=== PATIENT | female | born 1955 | race Caucasian/White ===

== ENCOUNTER 2020-06-30 17:00 | Emergency (ER) | payer OTHER ==
[2020-06-30 17:51] LABS: Hematocrit 26.1 % (36.0-45.0); Lymphocytes % 19.2 % (15.3-44.8); MPV 8.5 fL (7.6-11.3); RBC Red Blood Cell Count 3.05 M/uL (3.86-4.86)
[2020-06-30 17:55] LABS: Protime INR 1.16
[2020-06-30 18:00] LABS: Potassium 3.7 mmol/L (3.5-5.1)
--- NOTE | 2020-06-30 18:28 | RAD REPORT ---
EXAM DESCRIPTION: RAD - Knee Left 3 View - 06/30/2020 5:55 pm CLINICAL HISTORY: PAIN COMPARISON: No comparisons FINDINGS: Small suprapatellar joint effusion is seen. Soft tissue swelling is seen along the anterio r aspect of the knee. No acute fracture is evident.
--- NOTE | 2020-06-30 18:30 | RAD REPORT ---
EXAM DESCRIPTION: CT - CTHCSPWOC - 06/30/2020 6:03 pm CLINICAL HISTORY: Trauma, head and neck injury. fall COMPARISON: No comparisons TECHNIQUE: Axial 5 mm thick images of the head were obtained. Axial 2 mm thick images of the cervical spine were obtained with sagittal and coronal reconstruction images generated and reviewed. All CT scans are performed using dose optimization technique as appropriate and may include automated exposure control or mA/KV adjustment according to patient size. FINDINGS: CT HEAD WITHOUT CONTRAST: No acute hemorrhage, hydrocephalus or extra-axial collection is identified.No areas of brain edema or midline shift. The paranasal sinuses and mastoids are clear.The calvarium is intact. CT CERVICAL SPINE WITHOUT CONTRAST: No fracture or subluxation.Mild lower cervical degenerative changes.No prevertebral soft tissues swel ling is identified. IMPRESSION: No acute intracranial or cervical spine findings.
--- NOTE | 2020-06-30 18:32 | RAD REPORT ---
EXAM DESCRIPTION: CT - CTFB CLINICAL HISTORY: FACIAL PAIN Trauma, fall, left-sided facial pain swelling. COMPARISON: No comparisons TECHNIQUE: Axial 2 mm thick images of the face were obtained with sagittal and coronal reconstructio n images. All CT scans are performed using dose optimization technique as appropriate and may include automated exposure control or mA/KV adjustment according to patient size. FINDINGS: No acute facial bone fracture is seen.The mandible is intact. The globes and orbital contents are grossly unremarkable.The paranasal sinuses and mastoids are clear . IMPRESSION: Negative for facial bone fracture.
--- NOTE | 2020-06-30 18:35 | RAD REPORT ---
EXAM DESCRIPTION: CT - Thorax Wo Con CLINICAL HISTORY: Chest pain blunt chest trauma, dialysis patient, anterior hematoma COMPARISON: No comparisons FINDINGS: Soft tissue swelling is seen superior left aspect of the chest. Mild COPD is present throu ghout the lungs. Mild linear atelectasis is present in the left lung base. No pleural thickening or p leural effusion. No pneumothorax. No axillary, mediastinal or hilar adenopathy. No displaced fracture is evident. Degenerative changes are present involving the thoracic spine. No g ross upper abdominal finding. All CT scans are performed using dose optimization technique as appropriate and may include automated exposure control or mA/KV adjustment according to patient size. IMPRESSION: No acute intrathoracic abnormality is detected.
--- NOTE | 2020-06-30 18:37 | ER ---
Nurse's Notes [facility] Name: Jordana Henry Age: 65 yrs Sex: Female : 1955 Arrival Date: 06/30/2020 Time: 17:03 Bed 19 Private MD: Diagnosis: Hematoma left chest wall;Contusion of left knee;Facial contusion Presentation: 06/30 17:10 Chief complaint: EMS states: At the doctor's office, tripped over a chair in the lobby jl7 and fell, denies LOC, did not hit head, reports left side of face pain, left arm pain, left anterior chest wall pain. Care prior to arrival: None. Mechanism of Injury: Fall from standing position. Trauma event details: Injury occurred in the [facility], Injury occurred: in a public building. Injury occurred: June 30, 2020. 17:10 Acuity: AUGUST 3 jl7 17:10 Method Of Arrival: EMS: [facility] jl7 17:12 Coronavirus screen: Client denies travel out of the [place] in the last 14 days. At this jl7 time, the client does not indicate any symptoms associated with coronavirus-19. Ebola Screen: No symptoms or risks identified at this time. Initial Sepsis Screen: Does the patient meet any 2 criteria? No. Patient's initial sepsis screen is negative. Does the patient have a suspected source of infection? No. Patient's initial sepsis screen is negative. Risk Assessment: Do you want to hurt yourself or someone else? Patient reports no desire to harm self or others. Onset of symptoms was June 30, 2020. Triage Assessment: 17:15 General: Appears in no apparent distress. uncomfortable, Behavior is calm, cooperative, jl7 appropriate for age. Pain: Complains of pain in left jaw, anterior aspect of left upper chest and left arm Pain currently is 7 out of 10 on a pain scale. Neuro: Level of Consciousness is awake, alert, obeys commands, Oriented to person, place, time, situation. Cardiovascular: Patient's skin is warm and dry. Respiratory: Airway is patent Respiratory effort is even, unlabored, Respiratory pattern is regular, symmetrical. Derm: Skin is pink, warm \T\ dry. Bruising that is dark purple, on left jaw. Musculoskeletal: Swelling present in anterior aspect of left upper chest. Trauma Activation: Not Applicable Physician: ED Physician; Name: ; Notified At: ; Arrived At: Physician: General Surgeon; Name: ; Notified At: ; Arrived At: Physician: Radiology; Name: ; Notified At: ; Arrived At: Physician: Respiratory; Name: ; Notified At: ; Arrived At: Physician: Lab; Name: ; Notified At: ; Arrived At: Historical: - Allergies: 17:15 PENICILLINS; jl7 - PMHx: 17:15 Diabetes - IDDM; Dialysis; jl7 - PSHx: 17:15 Heart stents; Hysterectomy; Tonsillectomy; jl7 - Immunization history:: Adult Immunizations unknown. - Social history:: Smoking status: Patient denies any tobacco usage or history of. - Family history:: not pertinent. - Hospitalizations: : No recent hospitalization is reported. Screenin:42 Abuse screen: Denies threats or abuse. Denies injuries from another. Nutritional jl7 screening: No deficits noted. Tuberculosis screening: No symptoms or risk factors identified. Fall Risk Fall in past 12 months (25 points). IV access (20 points). Total Cintron Fall Scale indicates High Risk Score (45 or more points). Fall prevention measures have been instituted. Side Rails Up X 2 Placed Close to Nursing Station 1:1 Attendant Assigned Frequent Obs/Assessments Occuring Family Present and informed to notify staff if the need to leave the bedside As available patient and family educated on Fall Prevention Program and Strategies. Assessment: 17:15 General: See triage assessment. jl7 18:15 Reassessment: Patient appears in no apparent distress at this time. No changes from jl7 previously documented assessment. Patient and/or family updated on plan of care and expected duration. Pain level reassessed. Patient is alert, oriented x 3, equal unlabored respirations, skin warm/dry/pink. Vital Signs: 17:12 BP 138 / 49; Pulse 79; Resp 15; Temp 98.2; Pulse Ox 89% 0 lpm ; jl7 18:15 BP 135 / 51; Pulse 80; Resp 15; Pulse Ox 100% on 2.5 lpm NC; jl7 ED Course: 17:03 Patient arrived in ED. tw2 17:04 Chapito Kovacs MD is Attending Physician. rn 17:09 Archie Puentes RN is Primary Nurse. jl7 17:12 Triage completed. jl7 17:15 Arm band placed on right wrist. jl7 17:16 Missed attempt(s): 20 gauge in right antecubital area. Bleeding controlled, band aid tw2 applied, catheter tip intact. 17:41 Initial lab(s) drawn, by me, sent to lab. Inserted saline lock: 20 gauge in right jl7 antecubital area, using aseptic technique. Blood collected. 17:42 Patient has correct armband on for positive identification. Bed in low position. Call jl7 light in reach. Side rails up X 1. Pulse ox on. NIBP on. 17:56 XRAY Knee LEFT 3 view In Process Unspecified. EDMS 18:02 CT Head C Spine In Process Unspecified. EDMS 18:02 CT Facial Bones W/O Con In Process Unspecified. EDMS 18:03 CT Chest Wo Con In Process Unspecified. EDMS 18:50 No provider procedures requiring assistance completed. IV discontinued, intact, jl7 bleeding controlled, No redness/swelling at site. Pressure dressing applied. Administered Medications: No medications were administered Outcome: 18:36 Discharge ordered by . rn 18:50 Discharged to home ambulatory. jl7 18:50 Condition: stable 18:50 Discharge instructions given to patient, family, Instructed on discharge instructions, follow up and referral plans. Demonstrated understanding of instructions, follow-up care. 18:51 Patient left the ED. jl7 Signatures: Dispatcher [employer] Chapito Glasgow MD MD rn Wise, Tara, RN RN tw2 Archie Puentes RN RN jl7
--- NOTE | 2020-06-30 18:37 | EDPHYS ---
Physician Documentation [facility] Name: Jordana Henry Age: 65 yrs Sex: Female : 1955 Arrival Date: 06/30/2020 Time: 17:03 Bed 19 Private MD: ED Physician Chapito Kovacs HPI: 06/30 17:07 This 65 yrs old Female presents to ER via Unassigned with complaints of Fall rn Injury. 17:07 Details of fall: The patient fell from an upright position, while walking. Onset: The rn symptoms/episode began/occurred just prior to arrival. Associated injuries: The patient sustained injury to the head, injury to the chest. Severity of symptoms: At their worst the symptoms were mild, in the emergency department the symptoms are unchanged. The patient has not experienced similar symptoms in the past. Reports at doctor office, tripped over chair, fell on face/chest, no LOC, takes heparin for dialysis, remembers all events. No sob. + mild swelling to left anterior chest wall, and reports left facial pain. + mild left knee pain but able to stand on it for EMS.. Historical: - Allergies: 17:15 PENICILLINS; jl7 - PMHx: 17:15 Diabetes - IDDM; Dialysis; jl7 - PSHx: 17:15 Heart stents; Hysterectomy; Tonsillectomy; jl7 - Immunization history:: Adult Immunizations unknown. - Social history:: Smoking status: Patient denies any tobacco usage or history of. - Family history:: not pertinent. - Hospitalizations: : No recent hospitalization is reported. ROS: 17:08 Constitutional: Negative for fever, chills, and weight loss, Eyes: Negative for injury, rn pain, redness, and discharge, ENT: + right cheek/jaw pain Neck: Negative for injury, pain, and swelling, Cardiovascular: Negative for palpitations Respiratory: Negative for shortness of breath, cough, wheezing, and pleuritic chest pain, Abdomen/GI: Negative for abdominal pain, nausea, vomiting, diarrhea, and constipation, Back: Negative for injury and pain, MS/Extremity: + left knee pain Skin: Negative for laceration Neuro: Negative for headache, weakness, numbness, tingling, and seizure. Exam: 17:08 Constitutional: Obese patient, no acute distress Head/Face: Normocephalic, mild rn tenderness left cheek with ecchymosis, no oral injury ENT: No oral trauma Neck: No midline tenderness Chest/axilla: + anterior left chest wall hematoma without crepitus Cardiovascular: Regular rate and rhythm. No pulse deficits. Respiratory: Speaking full sentences. No increased work of breathing, no retractions or nasal flaring. Abdomen/GI: Soft, non-tender MS/ Extremity: + mild painful ROM left knee, no deformity, able to actively and passively range left knee, no open wounds Neuro: Awake and alert, GCS 15, oriented to person, place, time, and situation. Cranial nerves II-XII grossly intact. Motor strength 5/5 in all extremities. Sensory grossly intact. Vital Signs: 17:12 BP 138 / 49; Pulse 79; Resp 15; Temp 98.2; Pulse Ox 89% 0 lpm ; jl7 18:15 BP 135 / 51; Pulse 80; Resp 15; Pulse Ox 100% on 2.5 lpm NC; jl7 MDM: 17:04 Patient medically screened. rn 18:33 Differential diagnosis: closed head injury, contusion, fracture, sprain, strain, rib rn fracture, hematoma. Data reviewed: vital signs, nurses notes, radiologic studies, CT scan, plain films, and as a result, I will discharge patient. 18:36 Counseling: I had a detailed discussion with the patient and/or guardian regarding: the rn historical points, exam findings, and any diagnostic results supporting the discharge/admit diagnosis, lab results, radiology results, the need for outpatient follow up, to return to the emergency department if symptoms worsen or persist or if there are any questions or concerns that arise at home. Special discussion: I discussed with the patient/guardian in detail that at this point there is no indication for admission to the hospital. It is understood, however, that if the symptoms persist or worsen the patient needs to return immediately for re-evaluation. 06/30 17: Order name: CBC with Diff; Complete Time: 18:36 rn 06/30 17: Order name: Basic Metabolic Panel; Complete Time: 18:36 rn 06/30 17: Order name: CT Head C Spine; Complete Time: 18:36 rn 06/30 17: Order name: CT Facial Bones W/O Con; Complete Time: 18:36 rn 06/30 17: Order name: Protime (+inr); Complete Time: 18:36 rn 06/30 17:06 Order name: Ptt, Activated; Complete Time: 18:36 rn 06/30 17:06 Order name: CT Chest Wo Con rn 06/30 17:06 Order name: XRAY Knee LEFT 3 view; Complete Time: 18:36 rn 06/30 17:06 Order name: IV Start; Complete Time: 17:34 rn 06/30 17:06 Order name: EKG; Complete Time: 17:07 rn 06/30 17: Order name: EKG - Nurse/Tech; Complete Time: 17:54 rn Administered Medications: No medications were administered Disposition: 06/30/20 18:36 Discharged to Home. Impression: Hematoma left chest wall, Contusion of left knee, Facial contusion. - Condition is Stable. - Discharge Instructions: Contusion, Hematoma, Knee Pain. - Medication Reconciliation Form, Thank You Letter, Antibiotic Education, Prescription Opioid Use form. - Follow up: Private Physician; When: As needed; Reason: Recheck today's complaints, Re-evaluation by your physician. - Problem is new. - Symptoms have improved. Signatures: Dispatcher [employer] EDMS Chapito Kovacs MD MD rn Leal, Jahala, RN RN jl7 Corrections: (The following items were deleted from the chart) 17:10 17:08 Constitutional: Negative for fever, chills, and weight loss, Eyes: Negative for rn injury, pain, redness, and discharge, ENT: + right cheek/jaw pain Neck: Negative for injury, pain, and swelling, Cardiovascular: Negative for chest pain, palpitations, and edema, Respiratory: Negative for shortness of breath, cough, wheezing, and pleuritic chest pain, Abdomen/GI: Negative for abdominal pain, nausea, vomiting, diarrhea, and constipation, Back: Negative for injury and pain, MS/Extremity: + left knee pain Skin: Negative for laceration Neuro: Negative for headache, weakness, numbness, tingling, and seizure, rn 18:51 18:36 06/30/2020 18:36 Discharged to Home. Impression: Hematoma left chest wall; jl7 Contusion of left knee; Facial contusion. Condition is Stable. Discharge Instructions: Contusion, Hematoma, Knee Pain. Forms are Medication Reconciliation Form, Thank You Letter, Antibiotic Education, Prescription Opioid Use. Follow up: Private Physician; When: As needed; Reason: Recheck today's complaints, Re-evaluation by your physician. Problem is new. Symptoms have improved. rn
[2020-06-30 18:59] VITALS: TEMP 98.2
[2020-06-30 19:00] VITALS: BP 135/51; O2SAT 100
--- OUTSIDE RECORDS SUMMARY | 2020-07-01 22:13 | XMS REPORT | Continuity of Care Document ---
:1955 Author Organization [facility] t Address [address] [place] [address] Care Team Providers Name Role Phone Alice HILLS, L Attending Clinician Unavailable Fifi HERRMANN, G Attending Clinician Rizwana JOSEPH Attending Clinician Eri JOSEPH, A Attending Clinician Pob, Lab Main Attending Clinician Unavailable Rizwana JOSEPH Admitting Clinician Problems Condition Condition Condition Status Onset Resolution Last Treating Co mments Source Name Details Category Date Date Treatment Clinician Date Hyperlipid Hyperlipid Problem Active [facility], [facility], [facility] - unspecifie unspecifie Me moria d d l hyperlipid hyperlipid Ou tpati emia type emia type ent Clinics Asthma Asthma Problem [facility] Type 2 Type [address] [facility] diabetes diabetes [facility] - mellitus mellitus Memori a with with l 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 t y y Clinics Chronic Chronic Problem Active [facility] kidney kidney [facility] - disease, disease, Memori a unspecifie unspecifie l d CKD d CKD Outpati stage stage ent Clinics Uncontroll Uncontroll Problem Active [facility] ed type 2 ed type 2 [facility] - diabetes diabetes Memori a mellitus mellitus l with with Outpati hyperglyce hyperglyce en t lexie lexie Clinics Swelling Swelling Problem [facility] Essential Essential Problem Active [facility] hypertensi hypertensi Daisy kes - on on Memoria l [facility] Status Status Problem Active [facility] post post [facility] - non-ST non-ST Memoria elevation elevation l myocardial myocardial Ou tpati infarction infarction en t (NSTEMI) (NSTEMI) Clinic s Cellulitis Cellulitis Problem Active [facility] of right of right [facility] - leg leg Memoria l [facility] ent Clinics Kidney Kidney Problem Active [facility] disease disease [facility] ent [facility] Sinus Sinus Problem Active [facility] problem problem [facility] Diabetes Diabetes Problem Active [facility] Seasonal Seasonal Problem Active [facility] t allergies allergies Luke s - Memoria l [facility] Heart Heart Problem Active [facility] disease disease [facility] Depression Depression Problem Active [facility] CHF CHF Problem Active [facility] (congestiv (congestiv Daisy kes - e heart e heart Memoria failure) failure) l [facility] Circulatio Circulatio Problem Active [facility] n problem n problem [facility] - Memoria l [facility] Hypothyroi Hypothyroi Problem Active [facility] dism, dism, [facility] - unspecifie unspecifie Me moria d type d type l [facility] Gastroesop Gastroesop Problem Active [facility] hageal hageal [facility] - reflux reflux Memoria disease, disease, l esophagiti esophagiti Ou tpati s presence s presence en t not not Clinics specified specified Right leg Right leg Problem Active [facility] pain pain [facility] Clinics Skin Skin Problem Active [facility] abrasion abrasion [facility] Clinics History of History of Problem Active [facility] recent recent [facility] - fall fall Memoria l [facility] Clinics Shortness Shortness Problem Active [facility] of breath of breath Luke s - Memoria l [facility] ent Clinics Weight Weight Problem Active [facility] gain gain [facility]ics Chest Chest Problem Active [facility] tightness tightness Luke s - Memoria l [facility] Pain in Pain in Problem Active [facility] left foot left foot Luke s - Memoria l [facility] ent Clinics Non Non Problem Active [facility] healing healing [facility] - left heel left heel Art shlomo wound wound l Outpati ent Clinics Pain in Pain in Problem Active [facility] right foot right foot Daisy kes - Memoria l [facility] ent Clinics On On Problem Active [facility] supplement supplement Daisy kes - al oxygen al oxygen Art shlomo by nasal by nasal l cannula cannula [facility] ent Clinics Hypoxia Hypoxia Problem Active [facility] ent Clinics Rash and Rash and Problem Active [facility] t nonspecifi nonspecifi Daisy kes - c skin c skin Memoria eruption eruption l [facility] ent Clinics Allergies, Adverse Reactions, Alerts Allergy Allergy Status Severity Reaction(s) Onset Inactive Treating Comm ents Source Name Type Date Date Clinician penicill Adverse Active rash [facility] in Reaction [facility] ent Clinics Medications Ordered Filled Start Stop Current Ordering Indication Dosage Frequency Signature Comments Components Source Medication Medication Date Date Medication? Clinician (SIG) Name Name Metoprolol Metoprolol Yes Shanice TAKE [address] [facility] [address] Succinate Succinate Millender TABLETS BY [facility] - ER ER MOUTH ONCE Memoria DAILY l [facility] ent [facility] Procedures This patient has no known procedures. Encounters Start End Encounter Admission Attending Care Care Encounter Source Date/Time Date/Time Type Type Clinicians Facility Department ID 2020-06-08 2020-06-08 [facility] [id number] [facility] 11:32:00 11:32:00 [employer] [facility] 2020-06-07 2020-06-07 Outpatient [id number] [facility] 07:50:00 07:50:00 [facility] 2020-06-01 2020-06-01 [facility] [id number] [address] 11:29:00 11:29:00 [facility] [employer] [facility] Medicine [facility] 2020-05-27 2020-05-27 [facility] [id number] [address] 10[facility]40:00 10:40:00 [facility] [email or web address] [facility] 2020-04-23 2020-04-23 [facility] [id number] [address] 12:24:00 12:24:00 [facility] [email or web address] [facility] ent [facility] 2020-04-22 2020-04-22 Transition Octavio Jenkins [id number] 00:00:00 00:00:00 of Care Jailene Fisher [id number] [place] [id number] 2020-04-16 2020-04-21 [facility] Suzanna Calix [facility] [id number] 16:58:59 19:05:00 Encounter Maria Elena Wagoner Panfil[place] [id number] [place] [id number] [place] [id number] 2020-04-16 2020-04-16 [facility] [id number] 16:20:00 16:20:00 [facility] 2020-03-04 2020-03-04 [facility] [id number] 13:25:00 23:59:00 Encounter Jalen Arthur Panfil[place] [id number] [place] [id number] [place] [id number] 2020-03-04 2020-03-04 Grades 1 Thru 6 Home Teacher Tonya Jones [facility] [id number] 13:25:03 13:52:05 Visit Lab Main Pan[place] [id number] [place] [id number] Professio [id number] [address] 2020-03-03 2020-03-03 [facility] [id number] 10:00:00 10:00:00 [facility] Medicine Outpati ent Clinics 2020-03-01 2020-03-01 [facility] [id number] 15:22:00 15:22:00 [facility] Medicine Outpati ent Clinics 2020-02-27 2020-02-27 [facility] [id number] [address] 10:55:00 10:55:00 [facility] Medicine Outpati ent Clinics 2020-02-10 2020-02-10 [facility] [id number] [facility] 16:55:00 16:55:00 t [facility] Medicine Medicine Outpati ent Clinics 2020-01-22 2020-01-22 [facility] [id number] 14:09:00 14:09:00 t [facility] Medicine Outpati ent Clinics 2020-01-21 2020-01-21 [facility] [id number] 16:15:00 16:15:00 t [facility] Medicine Medicine Outpati ent Clinics 2020-01-06 2020-01-06 [facility] [id number] 13:35:00 13:35:00 t [facility] l Medicine Outpati ent Clinics 2019-12-31 2019-12-31 [facility] [id number] 13:40:00 13:40:00 t [facility] Medicine Outpati ent Clinics 2019-12-11 2019-12-11 [facility] [id number] 15:06:00 15:06:00 t [facility] Medicine Outpati ent Clinics 2019-10-24 2019-10-24 [facility] [id number] 10:07:00 10:07:00 t [facility] Medicine l Medicine Outpati ent Clinics 2019-10-01 2019-10-01 [facility] [id number] 03:19:00 03:19:00 t [facility] Medicine Medicine Outpati ent Clinics 2019-09-30 2019-09-30 [facility] [id number] 23:09:00 23:09:00 t [facility] l Medicine Outpati ent Clinics 2019-09-30 2019-09-30 [facility] [id number] 13:15:00 13:15:00 t [facility] Medicine Outpati ent Clinics 2019-05-01 2019-05-01 [facility] [id number] [facility] 13:40:00 13:40:00 t [facility] Medicine Outpati ent Clinics 2019-04-16 2019-04-16 [facility] [id number] 09:01:00 09:01:00 t [facility] Medicine Outpati ent Clinics 2019-04-01 2019-04-01 [facility] [id number] [facility] 14:00:00 14:00:00 t [facility] Medicine Outpati ent Clinics 2019-03-25 2019-03-25 [facility] [id number] 08:29:00 08:29:00 t [facility] Medicine Outpati ent Clinics 2019-03-24 2019-03-24 [facility] [id number] 01:54:00 01:54:00 t [facility] Medicine Outpati ent Clinics 2019-03-11 2019-03-11 [facility] [id number] 13:40:00 13:40:00 t [facility] Medicine Outpati ent Clinics 2019-02-04 2019-02-04 [facility] [id number] [facility] 13:39:00 13:39:00 t [facility] Medicine Outpati ent Clinics 2019-01-29 2019-01-29 [facility] [id number] 14:00:00 14:00:00 t [facility] Medicine Outpati ent Clinics Results This patient has no known results.
--- OUTSIDE RECORDS SUMMARY | 2020-07-01 22:13 | XMS REPORT ---
:1955 Author Organization [employer] Care Team Providers Name Role Phone Shanice Berger Provider Role Unavailable Allergies No Known Allergies Problems Problem Type Condition Code Onset Dates Condition Statu s Problem Depression F32.9 Active Problem CHF (congestive heart failure) I50.9 Active Problem Kidney disease N28.9 Active Problem Asthma J45.909 Active Problem Peripheral edema R60.9 Active Problem Sinus problem J34.9 Active Problem Heart disease I51.9 Active Problem Seasonal allergies J30.2 Active Problem Diabetes E11.9 Active Problem Essential hypertension I10 Activ e Problem Uncontrolled type 2 diabetes E11.65 Active mellitus with hyperglycemia Problem Skin abrasion T14.8XXA Active Problem Cellulitis of right lower L03.115 Ac tive extremity Problem History of recent fall Z91.81 Activ e Problem Cellulitis of right leg L03.115 Acti ve Problem Gastroesophageal reflux disease, K21.9 Active esophagitis presence not specified Problem Pain in left foot M79.672 Active Problem Non healing left heel wound S91.302A Active Problem Swelling R60.9 Active Problem Type 2 diabetes mellitus with E11.21 Active diabetic nephropathy Problem Pain in right foot M79.671 Active Problem Type 2 diabetes mellitus with E11.65 Active hyperglycemia Problem Weight gain R63.5 Active Problem Right leg pain M79.604 Active Problem Chest tightness R07.89 Active Problem Shortness of breath R06.02 Active Problem Depression, unspecified depression F32.9 Active type Problem Hypothyroidism, unspecified type E03.9 Active Problem High blood pressure I10 Active Problem Circulation problem I99.9 Active Problem Chronic kidney disease, N18.9 Acti ve unspecified CKD stage Problem Status post non-ST elevation I25.2 Active myocardial infarction (NSTEMI) Problem Hyperlipidemia, unspecified E78.5 Active hyperlipidemia type Problem Asthma, unspecified asthma J45.909 A ctive severity, unspecified whether complicated, unspecified whether persistent Medications No Known Medications Results No Known Results Summary Purpose [employer]Clinical[employer] Submission
--- OUTSIDE RECORDS SUMMARY | 2020-07-01 22:15 | XMS REPORT | Summary of Care ---
:1955 Author Organization [facility] Address [address] [place] [id number] Care Team Providers Name Role Phone Jorge Luis Hendrix MD Insurance Hmo Catherine Berger Primary Care Provider Reason for Referral (Routine) Status Reason Specialty Diagnoses / Referred By Referred To Procedures Contact Contact Pending Review IM-NEPHROLOGY Diagnoses Fall, initial encounter Jalen Hwang Procedures Discharge Follow-Up: Specialty Service IM-NEPHROLOGY; 1 Week MD Sandhya [address] [place] [address] [place] [address] Radiology Services (STAT) Status Reason Specialty Diagnoses / Referred By Referred To Procedures Contact Contact New Request Diagnostic Diagnoses Uremia Chronic diastolic congestive heart failure Weakness Suzanna Calix Radiology Procedures XR CHEST 1 VW G, PAEDIATRIC THORACIC PHYSICIAN [id number] [place] [id number] MRI/CAT Scan (STAT) Status Reason Specialty Diagnoses / Referred By Referred To Procedures Contact Contact New Request Diagnostic Diagnoses Fall, initial encounter Suzanna Calix Radiology Procedures CT ABDOMEN PELVIS WO CONTRAST G, PAEDIATRIC THORACIC PHYSICIAN [address] [address] (STAT) Status Reason Specialty Diagnoses / Referred By Referred To Procedures Contact Contact New Request Procedures Suzanna Calix G, UNILATERAL VENOUS PAEDIATRIC THORACIC PHYSICIAN DUPLEX LOWER [address] [place] [id number] [place] [address] Radiology Services (STAT) Status Reason Specialty Diagnoses / Referred By Referred To Procedures Contact Contact New Request Diagnostic Diagnoses Fall, initial encounter KoleSuzanna hernandez Radiology Procedures XR HIPS 3 VW BILATERAL XR HIP 1 VW BILATERAL G, PAEDIATRIC THORACIC PHYSICIAN [address] [id number] [place] [address] Reason for Visit Reason Comments Fall Auth/Cert Status Reason Specialty Diagnoses / Referred By Referred To Procedures Contact Contact Emergency Medicine Diagnoses FALL [facility] Emergency Dept [address] [place] [address] Fax: Encounter Details Date Type Department Care Team Description 04/16/2020 - Hospital Encounter [facility] Medicine Surgery Suzanna Calix, PAEDIATRIC THORACIC PHYSICIAN [id number] [place] [id number] Weakness 04/21/2020 Unit Maria Elena Wagoner MD 301 [facility] [place], [place] [id number] [address] [place] [id number] Allergies Active Allergy Reactions Severity Noted Date Comments Penicillin Rash 07/05/2015 documented as of this encounter (statuses as of 04/21/2020) Medications Medication Sig Dispensed Refills Start End Status Date Date levothyroxine Take 100 mcg 0 Act colt (SYNTHROID) 100 mcg by mouth tablet every morning. montelukast (SINGULAIR) Take 10 mg by 0 Active 10 mg tablet mouth daily. metoprolol succinate XL Take 50 mg by 0 Active (TOPROL XL) 25 mg 24 hr mouth daily. tablet albuterol (VENTOLIN) 90 Inhale 2 0 Active mcg/actuation inhaler Puffs every 6 (six) hours as needed for Wheezing or Shortness of Breath. atorvastatin 40 mg Take 1 tablet 30 tablet 12 Active tabletIndications: by mouth at 9 Hypercholesterolemia bedtime. vitamin b Take 1 tablet 30 tablet 3 Active complex-vitamin c-folic by mouth 9 acid 0.8 mg daily. tabletIndications: Acute kidney injury, Cellulitis of right lower extremity ca acetate-alum sulfate Apply 1 24 Packet 3 Active topical Packet to 9 packetIndications: Acute area(s) 3 kidney injury, (three) times Cellulitis of right daily. lower extremity insulin regular human inject 10 6 mL 5 Active 100 unit/mL Units under 9 injectionIndications: the skin 2 Acute kidney injury, (two) times Cellulitis of right daily before lower extremity breakfast and dinner. amLODIPine 10 mg Take 1 tablet 30 tablet 3 Active tabletIndications: Acute by mouth 9 kidney injury, daily. Cellulitis of right lower extremity calcium carbonate 500 mg Take 1 tablet 30 tablet 3 Active calcium (1,250 mg) by mouth 3 9 tabletIndications: Acute (three) times kidney injury, daily with Cellulitis of right meals. lower extremity DULoxetine 30 mg CDRS Take 30 0 Active capsules by mouth daily. budesonide-formoteroL Inhale 2 0 Active (SYMBICORT) 160-4.5 Puffs 2 (two) mcg/actuation inhaler times daily. bumetanide 1 mg tablet Take 2 mg by 0 Active mouth every morning and evening. allopurinoL 100 mg Take 100 mg 0 Active tablet by mouth daily. insulin glargine 100 inject 30 10 mL 0 Active unit/mL Units under 0 020 injectionIndications: the skin Fall, initial encounter daily for 30 days. sevelamer 800 mg Take 2 180 tablet 0 Ac tive tabletIndications: Fall, tablets by 0 020 initial encounter mouth 3 (three) times daily with meals for 30 days. ferrous sulfate 324 mg Take 1 tablet 30 tablet 0 21/11 Active (65 mg iron) EC by mouth 0 020 tabletIndications: Fall, daily with initial encounter breakfast for 30 days. aspirin 81 mg EC tablet Take 81 mg by 0 Discontinued mouth daily. 020 gabapentin 300 mg Take 1 60 capsule 12 D iscontinued capsuleIndications: Type capsule by 9 020 2 diabetes mellitus with mouth 2 (two) diabetic polyneuropathy, times daily. with long-term current use of insulin cholecalciferol, vitamin Take 1 tablet 30 tablet 5 0 Discontinued D3, 1,000 unit by mouth 9 020 tabletIndications: Acute daily. kidney injury, Cellulitis of right lower extremity furosemide 40 mg Take 2 120 tablet 1 Di scontinued tabletIndications: tablets by 0 020 Anasarca associated with mouth every disorder of kidney morning and evening. insulin glargine 100 inject 40 3 mL 5 Discontinued unit/mL Units under 0 020 injectionIndications: the skin Acute kidney injury, daily. Cellulitis of right lower extremity levoFLOXacin 250 mg Take 1 tablet 7 tablet 0 Discontinued tabletIndications: by mouth 0 020 Cellulitis of right every 24 lower extremity (twenty-four) hours. metOLazone 5 mg Take 1 tablet 30 tablet 0 Discontinued tabletIndications: by mouth 0 020 Anasarca associated with daily. disorder of kidney insulin glargine U-300 inject 65 0 Discontinued conc (TOUJEO MAX U-300 Units under 020 SOLOSTAR) 300 unit/mL (3 the skin mL) InPn daily. documented as of this encounter (statuses as of 04/21/2020) Active Problems Problem Noted Date Weakness 04/16/2020 Volume overload 10/30/2019 Chronic diastolic congestive heart failure 12/23/2018 ALANIZ (dyspnea on exertion) 12/21/2018 Essential hypertension 12/21/2018 Elevated troponin I level 12/21/2018 Coronary artery disease involving [place] coronary [place] ry of [place] heart 12/21/2018 without angina pectoris History of [place] (myocardial infarction) 12/21/2018 Cellulitis 12/21/2018 WOODY (acute kidney injury) 12/20/2018 Morbid obesity with body mass index of 40.0-49.9 08/16 Morbid obesity with body mass index of 50 or higher documented as of this encounter (statuses as of 04/21/2020) Social History Tobacco Use Types Packs/Day Years Used Date Former Smoker Quit: 09/24/19 Smokeless Tobacco: Never Used Tobacco Cessation: Counseling Given: No Alcohol Use Drinks/Week oz/Week Comments No Education Answer Date Recorded What is the highest level of school Associate degree: [employer] program 10/30/2019 you have completed or the highest degree you have received? Financial Resource Strain Answer Date Recorded How hard is it for you to pay for the very basics like food, Hard 10/30/2019 housing, medical care, and heating? Food Insecurity Answer Date Recorded Within the past 12 months, you worried that your food would Never true 04/17/2020 run out before you got money to buy more. Within the past 12 months, the food you bought just didn't N ever true 04/17/2020 last and you didn't have money to get more. Transportation Needs Answer Date Recorded In the past 12 months, has lack of transportation kept you f rom No 10/30/2019 medical appointments or from getting medications? In the past 12 months, has lack of transportation kept you f rom No 10/30/2019 meetings, work, or getting things needed for daily living? Sex Assigned at Date Recorded Not on file Job Start Date Occupation Industry Not on file Not on file Not on file Travel History Travel Start Travel End No recent travel history available. COVID-19 Exposure Response Date Recorded In the last month, have you been in contact with No / Unsure 04/16/2020 5:05 PM CDT someone who was confirmed or suspected to have Coronavirus / COVID-19? documented as of this encounter Last Filed Vital Signs Vital Sign Reading Time Taken Comments Blood Pressure 138/59 04/21/2020 3:44 PM CDT Pulse 78 04/21/2020 3:44 PM CDT Temperature 36.7 C (98.1 F) 04/21/2020 3:44 PM CDT Respiratory Rate 18 04/21/2020 3:44 PM CDT Oxygen Saturation 96% 04/21/2020 3:44 PM CDT Inhaled Oxygen Concentration - - Weight 132.9 kg (293 lb) 04/21/2020 6:25 AM CDT Height 157.5 cm (5' 2") 04/18/2020 3:00 AM CDT Body Mass Index 53.59 04/18/2020 3:00 AM CDT documented in this encounter Discharge Summaries Denita Bang FNP - 04/21/2020 4:25 PM CDT [facility] Hospitalist Discharge Summary ADMIT DATE: 04/16/2020 DISCHARGE DATE: 04/21/2020 ATTENDING MD: Patrick Hoffmann MD PCP: Shanice Berger REASON FOR ADMISSION Fall CONSULTING SERVICES: Nephrology, gen surgery PROCEDURES: none HOSPITAL COURSE: Jordana Henry is a 65 year old female with PMH as listed above, admitted to the hospital with: WOODY on CKD 5 with volume overload, uremia Being evaluated for PD as outpatient by Dr. Hwang ReceivedIV lasix iptcarolyne discontinued per nephrology. Continue strict I/Os. Nephrology on board. Possible HD initiation if no improvement. Patient need PD placement therapy soon for peritoneal dialysis as outpatient Patient awaiting surgery today with surgery , but unable to proceed due to anesthesia concerns due to patient oxygen Dependent COPD Anemia of kidney disease Ferritin 110. Defer epogen to nephrology. Monitor for blood loss. Iron level 23 IV iron daily Day 2 Ferrous sulfate 325 mg daily Acute hypoxic respiratory failure Due to pulmonary edema, anasarca Arrange for home O2 IDDM A1c 9.2 Lantus 30 units daily SSI, accucheck ac & hs Generalized weakness PT arranged Patient will need assistance at lease tid weekly PHYSICAL EXAM: NAD Anicteric sclera, oral mucosa clear Good air entry b/l RRR, nl s1s2 Obese, Abd soft NT bilateral anasarca AAO, no gross deficits Skin warm and dry Bilateral knees not red or swollen SIGNIFICANT LAB/X-RAYS: LABS - reviewed pertinent labs as below: CBC BMP PT/INR WBC (10*3/L) Date Value 04/20/2020 11.64 (H) NA (mmol/L) Date Value 04/20/2020 138 No results found for: PT RBC (10*6/L) Date Value 04/20/2020 2.63 (L) K (mmol/L) Date Value 04/20/2020 4.2 No results found for: PTINR PLT (10*3/L) Date Value 04/20/2020 259 CALCIUM (mg/dL) Date Value 04/20/2020 9.0 HGB (g/dL) Date Value 04/20/2020 7.4 (L) CL (mmol/L) Date Value 04/20/2020 99 aPTT HCT (%) Date Value 04/20/2020 23.7 (L) BUN (mg/dL) Date Value 04/20/2020 136 (H) No results found for: APTTPAT CREATININE (mg/dL) Date Value 04/20/2020 4.19 (H) IMAGING - reviewed Hospital Encounter on 04/16/20 XR HIPS 3 VW BILATERAL Narrative EXAM: XR HIPS 3 VW BILATERAL HISTORY: 65 years-old Female with multiple falls. R/o fracture COMPARISON: Right hip x-ray 03/18/2015 FINDINGS: Radiographs of the bilateral hips demonstrate no acute fractures or dislocations. Joint spaces are preserved. Alignment is within normal limits. Vascular calcifications are noted. Pelvic phleboliths are noted. Impression No acute bony abnormality. Preliminary Report Dictated by Resident: Mauricio Ellington I, To Johnson MD., have reviewed this study and agree with the above report. CT ABDOMEN PELVIS WO CONTRAST Narrative CT ABDOMEN AND PELVIS WITH CONTRAST HISTORY: Pelvis-low abd trauma, blunt, lower urinary tract trauma suspected COMPARISON: Same day hip radiographs. TECHNIQUE: Contiguous axial imaging from the level of the lung bases through the pubic symphysis was performed without IV contrast. Coronal and sagittal reconstructions were obtained. FINDINGS: Limited evaluation of the intra-abdominal structures without IV contrast. LOWER THORAX: Bibasilar subsegmental atelectasis. Tree-in-bud opacities in the right middle lobe and right lower lobe are partially visualized. Hypoattenuation of the blood pool relative to the myocardium is suggestive of anemia. LIVER: Mild hepatomegaly up to 18.4 cm in craniocaudal dimension. No focal hepatic lesions within the limitations of a noncontrast CT. Scattered calcified granulomas are seen.. GALLBLADDER: Cholelithiasis. No gallbladder wall thickening. SPLEEN: No splenomegaly. PANCREAS: Unremarkable within the extent visualized ADRENAL GLANDS: No adrenal nodules. KIDNEYS: Bilateral renal cortical simple cysts measuring up to 3.5 cm in the left lower pole. Bilateral perinephric stranding, right greater than left, nonspecific. Scattered vascular calcifications. No obstructive nephrolithiasis or urolithiasis is seen. No hydronephrosis. Asymmetric prominence of the right mid ureter at the level of the pelvic inlet on 2:106 with adjacent stranding, nonspecific. PERITONEUM AND RETROPERITONEUM: No free air or fluid. Right perinephric and periureteral stranding, nonspecific. LYMPH NODES: Mildly enlarged pelvic lymph nodes bilaterally up to 1.1 cm in the external iliac chain.. Enlarged retroperitoneal lymph nodes measuring up to 1 cm a. GI TRACT: No dilation or wall thickening. Retrocecal appendix on 4:57, normal. Laxity of the pelvic floor musculature with a small rectocele. Distal rectosigmoid wall thickening, nonspecific. PELVIS: The urinary bladder is markedly distended. Status post hysterectomy VESSELS: Scattered aortoiliac atherosclerotic calcifications. BONES AND SOFT TISSUES: No acute osseous abnormalities. Diffuse osteopenia. Advanced endplate degenerative changes in the lower lumbar spine with partial fusion of L4-L5.. Sarcopenia. Soft tissue swelling in the proximal lateral hip and lower abdominal wall soft tissues. Impression Limited evaluation without IV contrast. No acute fractures. Soft tissue swelling in the lower abdomen and proximal thigh. Distended urinary bladder. Prominent right ureter with right-sided periureteral and perinephric stranding.. Ascending infection/pyelonephritis is possible. No obstructive negative lithiasis or ureterolithiasis. No hydronephrosis.. Mildly enlarged retroperitoneal and pelvic lymph nodes, nonspecific, possibly reactive. Tree-in-bud opacities in the right middle and lower lobe, partially visualized. Findings suggest an infectious etiology or aspiration. Cholelithiasis without cholecystitis. Mild hepatomegaly. Advanced endplate changes at L4-L5. Diffuse osteopenia. Preliminary Report Dictated by Resident: Efrain Carrera I, Susanne Reilly MD., have reviewed this study and agree with the above report. XR CHEST 1 VW Narrative EXAM: XR CHEST 1 VW HISTORY: fluid overload COMPARISON: Chest x-ray 03/04/2020 FINDINGS: No focal consolidation, pleural effusion or pneumothorax is seen. The cardiac silhouette is within the upper limit of normal size. No acute bony abnormality. Impression No acute cardiopulmonary abnormality. Preliminary Report Dictated by Resident: Gerry Samayoa I, Hill Stockton MD., have reviewed this study and agree with the above report. ITEMS FOR FOLLOW UP PROVIDER: FUNCTIONAL STATUS: As tolerated DISCHARGE CONDITION: fair DIET: renal ACTIVITY: as tolerated DISCHARGE MEDICATIONS: Current Discharge Medication List START taking these medications Details ferrous sulfate 324 mg Take 324 mg by mouth daily with breakfast. Qty: 30 tablet, Refills: 0 Start date: 04/21/2020, End date: 05/21/2020 Associated Diagnoses: Fall, initial encounter sevelamer (RENVELA) 1,600 mg Take 1,600 mg by mouth 3 (three) times daily with meals. Qty: 180 tablet, Refills: 0 Start date: 04/21/2020, End date: 05/21/2020 Associated Diagnoses: Fall, initial encounter CONTINUE these medications which have CHANGED Details insulin glargine (LANTUS U-100) 30 Units inject 30 Units under the skin daily. Qty: 10 mL, Refills: 0 Start date: 04/22/2020, End date: 05/22/2020 Associated Diagnoses: Fall, initial encounter CONTINUE these medications which have NOT CHANGED Details allopurinoL (ZYLOPRIM) 100 mg Take 100 mg by mouth daily. budesonide-formoteroL (SYMBICORT) 2 Puffs Inhale 2 Puffs 2 (two) times daily. bumetanide (BUMEX) 2 mg Take 2 mg by mouth every morning and evening. DULoxetine (DRIZALMA SPRINKLE) 30 capsules Take 30 capsules by mouth daily. amLODIPine (NORVASC) 10 mg Take 10 mg by mouth daily. Qty: 30 tablet, Refills: 3 Associated Diagnoses: Acute kidney injury; Cellulitis of right lower extremity ca acetate-alum sulfate (DOMEBORO) 1 Packet Apply 1 Packet to area(s) 3 (three) times daily. Qty: 24 Packet, Refills: 3 Associated Diagnoses: Acute kidney injury; Cellulitis of right lower extremity calcium carbonate (OSCAL-500) 500 mg Take 500 mg by mouth 3 (three) times daily with meals. Qty: 30 tablet, Refills: 3 Associated Diagnoses: Acute kidney injury; Cellulitis of right lower extremity insulin regular human (HUMULIN R) 10 Units inject 10 Units under the skin 2 (two) times daily beforebreakfast and dinner. Qty: 6 mL, Refills: 5 Associated Diagnoses: Acute kidney injury; Cellulitis of right lower extremity vitamin b complex-vitamin c-folic acid (NEPHRO-LESLI) 1 tablet Take 1 tablet by mouth daily. Qty: 30 tablet, Refills: 3 Associated Diagnoses: Acute kidney injury; Cellulitis of right lower extremity atorvastatin (LIPITOR) 40 mg Take 40 mg by mouth at bedtime. Qty: 30 tablet, Refills: 12 Associated Diagnoses: Hypercholesterolemia albuterol (VENTOLIN) 2 Puffs Inhale 2 Puffs every 6 (six) hours as needed for Wheezing or Shortness of Breath. metoprolol succinate XL (TOPROL XL) 50 mg Take 50 mg by mouth daily. levothyroxine (SYNTHROID) 100 mcg Take 100 mcg by mouth every morning. montelukast (SINGULAIR) 10 mg Take 10 mg by mouth daily. STOP taking these medications insulin glargine U-300 conc (TOUJEO MAX U-300 SOLOSTAR) 65 Units Comments: Reason for Stopping: furosemide (LASIX) 80 mg Comments: Reason for Stopping: levoFLOXacin (LEVAQUIN) 250 mg Comments: Reason for Stopping: metOLazone (ZAROXOLYN) 5 mg Comments: Reason for Stopping: cholecalciferol (vitamin D3) 1,000 Units Comments: Reason for Stopping: gabapentin (NEURONTIN) 300 mg Comments: Reason for Stopping: aspirin 81 mg Comments: Reason for Stopping: DISCHARGE: home health FOLLOW-UP APPOINTMENT: Follow up with Dr Hwang nephrology with in 1 week Follow up/ keep scheduled appointment with surgeon for PD catheter Please call paging services at [phone] to contact AMIRA Bragg with any questions. AMIRA Bragg [facility] was viewed during this stay Hospital discharge time took longer than 35 minutes. Associated attestation - Patrick Hoffmann MD - 04/21/2020 7:01 PM CDTI personally evaluated and examined the patient on 04/21/2020 and agree with the note as detailed by the nurse practitioner. I actively participated in the decision- making process. In summary, patient was admitted for WOODY on CKD5. Appointment made with surgery at [place] for PD cath placement on 05/04. Follow with nephrology closely. Pt has been on home O2. Rest of plan per below. Patrick Hoffmann M.D. 04/21/2020 6:59 PM documented in this encounter Discharge Instructions Jim Leal - 04/19/2020 11:41 AM CDTYour followed appointment with Dr. Hwang Group is April, at 3:15 PM. Address: [address] [place] [id number] If you need to cancel or make changes call the office as soon as possible. AttachmentsThe following attachments cannot be sent through Care Everywhere. Chronic Kidney Disease (CKD) ([place]er)Sevelamer capsules or tablets ([place] Konger) Iron tablets, capsules, extended-release tablets ([place]er)documented in this encounter Progress Notes Anup Monzon RN - 04/21/2020 3:39 PM CDTUpdated Kady w/ [facility] P:[phone] that the patient would not be receiving the dialysis port today and has it scheduled outpt. She stated they can not proceed w/ the set up until she gets the port. Anup Monzon RN, BSN [facility] [employer] O [phone] F [phone] NTCSerge barber MD - 04/21/2020 12:02 PM CDT GENERAL SURGERY DAILY PROGRESS NOTE Patient Name: Jordana Henry Date of : 1955 Date: 04/21/2020 ID: [id number] F with CKD V admitted after a fall. General surgery consulted to evaluate for PD catheter placement 24 HOUR EVENTS: - SOULEYMANE, VSS - Patient seen and examined on the floor Objective: Vital Signs Temp: [36.4 C (97.5 F)-36.8 C (98.2 F)] Pulse: [72-82] Resp: [18-20] BP: (136-152)/(44-59) MAP (mmHg): [72-82] Intake/Output Intake/Output Summary (Last 24 hours) at 04/21/2020 1202 Last data filed at 04/20/2020 2210 Gross per 24 hour Intake 100 ml Output 1750 ml Net -1650 ml PHYSICAL EXAM General: alert and oriented x 4 (person, place, date/time and situation); no apparent distress HEENT: normocephalic atraumatic, icterus, moist mucous membranes. pupils equal, round, reactive to light and extra ocular movements intact Respiratory: Regular unlabored breathing on NC Cardio: regular rate, normal peripheral perfusion Abdomen: soft, ND NT, large pannus, suprapubic pfannenstiel scar well healed Extremities: no clubbing, cyanosis, or edema Labs/Radiology CBC WBC (10*3/L) Date Value 04/20/2020 11.64 (H) RBC (10*6/L) Date Value 04/20/2020 2.63 (L) PLT (10*3/L) Date Value 04/20/2020 259 HGB (g/dL) Date Value 04/20/2020 7.4 (L) HCT (%) Date Value 04/20/2020 23.7 (L) BMP NA (mmol/L) Date Value 04/20/2020 138 K (mmol/L) Date Value 04/20/2020 4.2 CALCIUM (mg/dL) Date Value 04/20/2020 9.0 CL (mmol/L) Date Value 04/20/2020 99 BUN (mg/dL) Date Value 04/20/2020 136 (H) CREATININE (mg/dL) Date Value 04/20/2020 4.19 (H) GLUCOSE (mg/dL) Date Value 04/20/2020 162 (H) CO2 TOTAL (mmol/L) Date Value 04/20/2020 29 No results found for: ACPH, ACPCO2, ACPO2, ACO2HB, ACNA, ACK, ACCAIONZ Xr Chest 1 Vw Result Date: 04/16/2020 No acute cardiopulmonary abnormality. Preliminary Report Dictated by Resident: Gerry Samayoa I, Hill Stockton MD., have reviewed this study and agree with the above report. Ct Abdomen Pelvis Wo Contrast Result Date: 04/18/2020 Limited evaluation without IV contrast. No acute fractures. Soft tissue swelling in the lower abdomen and proximal thigh. Distended urinary bladder. Prominent right ureter with right-sided periureteraland perinephric stranding.. Ascending infection/pyelonephritis is possible. No obstructive negative lithiasis or ureterolithiasis. No hydronephrosis.. Mildly enlarged retroperitoneal and pelvic lymph nodes, nonspecific, possibly reactive. Tree-in-bud opacities in the right middle and lower lobe, partially visualized. Findings suggest an infectious etiology or aspiration. Cholelithiasis without cholecystitis. Mild hepatomegaly. Advanced endplate changes at L4-L5. Diffuse osteopenia. Preliminary Report Dictated by Resident: Efrain Carrera I, Susanne Reilly MD., have reviewed this study and agree with the above report. Xr Hips 3 Vw Bilateral Result Date: 04/16/2020 No acute bony abnormality. Preliminary Report Dictated by Resident: Mauricio Ellington I, To Johnson MD., have reviewed this study and agree with the above report. MEDICATIONS Scheduled Medications furosemide 80 mg ONCE bumetanide 2 mg QAM+PM sodium ferric gluconate (FERRLECIT) 125 mg in NS 125 mg DAILY allopurinoL 100 mg DAILY amLODIPine 10 mg DAILY budesonide-formoteroL 2 Puff BID calcium carbonate 500 mg TID MEALS insulin glargine 30 Units DAILY levothyroxine 100 mcg QAM-0600 metoprolol succinate XL 50 mg DAILY sevelamer 1,600 mg TID MEALS insulin aspart AC+HS IV Medications/Drips PRN Medications acetaminophen 650 mg Q6HPRN dextrose 50 % in water (D50W) 25 mL PRN glucagon 1 mg PRN ondansetron 4 mg Q6HPRN Patient Active Problem List Diagnosis Morbid obesity with body mass index of 40.0-49.9 Morbid obesity with body mass index of 50 or higher WOODY (acute kidney injury) ALANIZ (dyspnea on exertion) Essential hypertension Elevated troponin I level Coronary artery disease involving [place] coronary artery of [place] heart without angina pectoris History of [place] (myocardial infarction) Cellulitis Chronic diastolic congestive heart failure Volume overload Weakness Assessment/ Plan: Jordana Henry is a 65 year old female with CKD 2/2 to DM and HTN, CAD s/p stenting, COPD on home O2, deemed end stage renal by nephrology, with imminent need for dialysis. Patient seen and evaluated by anesthesia in the preop holding area. Due to the patient's severe COPD, there were concerns that the patient would not be able to extubate after the procedure and would require ventilatory support. Unfortunately, due to hospital and ICU capacity with the current COVID crisis, there are no ICU beds thatwould be able to accommodate her if she required ventilation postoperatively, and she would need subsequent transfer. After speaking with her daughter, we were notified that the patient has been seen and evaluated by a surgeon at [facility] in [place] for PD catheter placement, and she reports she has the procedure scheduled already. Due to all of these concerns and updates from her family, decision was made to not offer the procedure during this hospital admission. - Follow up with surgeon at outside hospital for PD catheter placement Serge Pardo MD PGY 2 General Surgery [phone] 04/21/2020 Associated attestation - Ivette Clifton MD - 04/21/2020 2:01 PM CDTAttending Attestation: I personally evaluated and examined the patient on 04/21/[address] Pardo's progress note as written. I actively participated in the decision-making process. Please see the resident's note for additional details. The patient was seen in holding with anesthesia. There were concerns due to patient's underlying oxygen dependent COPD that she may need ventilatory support following surgery. There are no ICU beds available at [facility] at this time. Additionally it was discovered that the patient is scheduled for PD catheter placement as an outpatient on 05/04/2020 on further discussion with the patient's daughter. At this time we recommend postponing PD catheter placement due to possible need of anICU bed following surgery. If the patient is still in hospital and an ICU bed becomes available, we can plan for PD catheter placement during this hospitalization if the patient and family wishes. Ivette Clifton M.D. 04/21/2020 13:57Jalen Hwang MD - 04/21/2020 10:29 AM CDT Medicine Progress Note Date of Service: 04/21/2020 Chief Complaint: Weakness right lower extremity 24-HOUR EVENTS: 64 year-old female with pmh of DM, HTN, CAD s/p stent, CKD, chronic respiratory failure (on 2 litersNC)who presents to the ED secondary to recurrent falls. Patient was noted to have fallen about 3 days ago and then again this morning. She notes that she get weak in the legs and that is what makes her fall. She denies hitting her head. She does note right hip pain. Of note, as for her kidney, hernephrologist Dr. Hwang has started the process of preparation for upcoming dialysis in the future. She continues to have weight gain but notes that she still urinates, although she does not know if it is at a decreased stream or frequency. Patient kidney function continued to decline as leg swelling Still have leg swelling SUBJECTIVE: Have been improve in the shortness of breath patient had very good negative I's and O's CURRENT MEDICATIONS - reviewed. PHYSICAL EXAM: BP (!) 140/59 | Pulse 74 | Temp 36.4 C (97.5 F) (Temporal Artery) | Resp 18 | Ht 5' 2" (1.575 m) | Wt 293 lb (132.9 kg) | SpO2 97% | BMI 53.59 kg/m Intake/Output Summary (Last 24 hours) at 04/21/2020 1029 Last data filed at 04/20/2020 2210 Gross per 24 hour Intake 500 ml Output 2750 ml Net -2250 ml General: alert and oriented x 3; no apparent distress HEENT: pupils equal, round, reactive to light; extraocular movements intact; oropharynx clear; moistmucous membranes, normocephalic atraumatic Neck: supple, no lymphadenopathy, no bruits, no JVD, full range of motion Lungs: clear to auscultation bilaterally Cardio: S1, S2 normal; no murmurs, rubs or gallops, regular rate and rhythm Abdomen: soft; non-tender; non-distended; normoactive bowel sounds Extremities: no clubbing, cyanosis, +3 edema Skin: no rashes Neuro: cranial nerves II through XII grossly intact; sensation grossly intact; muscle strength 5 outof 5 in all four extremities LABS/IMAGING - reviewed, pertinent results as below: CBC BMP PT/INR WBC (10*3/L) Date Value 04/20/2020 11.64 (H) NA (mmol/L) Date Value 04/20/2020 138 No results found for: PT RBC (10*6/L) Date Value 04/20/2020 2.63 (L) K (mmol/L) Date Value 04/20/2020 4.2 No results found for: PTINR PLT (10*3/L) Date Value 04/20/2020 259 CALCIUM (mg/dL) Date Value 04/20/2020 9.0 HGB (g/dL) Date Value 04/20/2020 7.4 (L) CL (mmol/L) Date Value 04/20/2020 99 aPTT HCT (%) Date Value 04/20/2020 23.7 (L) BUN (mg/dL) Date Value 04/20/2020 136 (H) No results found for: APTTPAT CREATININE (mg/dL) Date Value 04/20/2020 4.19 (H) Radiology No final results containing an impression from the past 2 days were found. ASSESSMENT/PLAN Jordana Henry is a 65 year old female with PMH as listed above, admitted to the hospital with: CKD V , monitor for any uremic symptomatology to start hd if any new symptoms or labs worsening Cr stable at baseline , patient may need renal replacement therapy/P-dialysis in near future CKD due to DM and HTN nephrosclerosis Avoid NSAID and contrast PD catheter placement today Will initiate renal replacement therapy as outpatient after placement of catheter Continue diuresis Okay from the renal standpoint for DC planning after catheter placement Anemia of chronic disease/iron deficiency anemia S/Pepogen Continue the patient on IV iron Pneumonia per primary team , adjust antibiotics per renal dose Edema Will continue lasix, DM As per primary team, continue Insulin HTN Resume home meds Metabolic bone disease continuerenvela Denita Bang FNP - 04/20/2020 4:20 PM CDT [facility] Hospitalist Progress Note SUBJECTIVE: Patient seen at bedside no complaints at this time. CURRENT MEDICATIONS - reviewed. Current Facility-Administered Medications Medication Dose Route Frequency Last Rate Last Dose bumetanide (BUMEX) tablet 2 mg 2 mg Oral QAM+PM 2 mg at 04/20/20 0823 sodium ferric gluconate (FERRLECIT) 125 mg in NaCl 0.9% (NS) 100 mL IV piggyback 125 mg IV Piggyback DAILY 125 mg at 04/20/20 0938 acetaminophen (TYLENOL) tablet 650 mg 650 mg Oral Q6HPRN allopurinoL (ZYLOPRIM) tablet 100 mg 100 mg Oral DAILY 100 mg at 04/20/20 0823 amLODIPine (NORVASC) tablet 10 mg 10 mg Oral DAILY 10 mg at 04/20/20 0822 budesonide-formoteroL (SYMBICORT) 160-4.5 mcg/actuation inhaler 2 Puff 2 Puff Inhalation BID 2 Puff at 04/20/20 0821 calcium carbonate (OSCAL-500) tablet 500 mg 500 mg Oral TID MEALS 500 mg at 04/20/20 1212 dextrose 50 % in water (D50W) injection 25 mL 25 mL Slow IV Push PRN glucagon (GLUCAGEN DIAGNOSTIC KIT) injection 1 mg 1 mg Intramuscular PRN insulin glargine (LANTUS U-100) injection 30 Units 30 Units Subcutaneous DAILY 30 Units at 04/20/20 0823 levothyroxine (SYNTHROID) tablet 100 mcg 100 mcg Oral QAM-0600 100 mcg at 04/20/20 0550 metoprolol succinate XL (TOPROL XL) tablet 50 mg 50 mg Oral DAILY 50 mg at 04/20/20 0823 ondansetron (ZOFRAN (PF)) injection 4 mg 4 mg Slow IV Push Q6HPRN sevelamer (RENVELA) tablet 1,600 mg 1,600 mg Oral TID MEALS 1,600 mg at 04/20/20 1212 Sliding Scale Insulin - Aspart (NOVOLOG) + Fsbg Testing Subcutaneous AC+HS 6 Units at 04/20/20 1212 PHYSICAL EXAM: BP (!) 152/57 | Pulse 82 | Temp 36.7 C (98 F) (Temporal Artery) | Resp 18 | Ht 1.575 m (5' 2") | Wt 137 kg (302 lb) | SpO2 97% | BMI 55.24 kg/m General: NAD HEENT: Anicteric sclerae, NCAT Lungs: CTAB Cardio: RRR, strong symmetric pulses Abdomen: Obese, Soft, NTND Genitourinary: Ramsey in place Musculoskeletal: Normal muscle mass, no synovitis Skin: No rash or lesions, normal turgot Neuro: AAO, no focal deficits Psych: Normal affect LABS/IMAGING - reviewed, pertinent results as below: CBC BMP PT/INR WBC (10*3/L) Date Value 04/20/2020 11.64 (H) NA (mmol/L) Date Value 04/20/2020 138 No results found for: PT RBC (10*6/L) Date Value 04/20/2020 2.63 (L) K (mmol/L) Date Value 04/20/2020 4.2 No results found for: PTINR PLT (10*3/L) Date Value 04/20/2020 259 CALCIUM (mg/dL) Date Value 04/20/2020 9.0 HGB (g/dL) Date Value 04/20/2020 7.4 (L) CL (mmol/L) Date Value 04/20/2020 99 aPTT HCT (%) Date Value 04/20/2020 23.7 (L) BUN (mg/dL) Date Value 04/20/2020 136 (H) No results found for: APTTPAT CREATININE (mg/dL) Date Value 04/20/2020 4.19 (H) IMAGING- Hospital Encounter on 04/16/20 XR HIPS 3 VW BILATERAL Narrative EXAM: XR HIPS 3 VW BILATERAL HISTORY: 65 years-old Female with multiple falls. R/o fracture COMPARISON: Right hip x-ray 03/18/2015 FINDINGS: Radiographs of the bilateral hips demonstrate no acute fractures or dislocations. Joint spaces are preserved. Alignment is within normal limits. Vascular calcifications are noted. Pelvic phleboliths are noted. Impression No acute bony abnormality. Preliminary Report Dictated by Resident: Mauricio Ellington I, To Johnson MD., have reviewed this study and agree with the above report. CT ABDOMEN PELVIS WO CONTRAST Narrative CT ABDOMEN AND PELVIS WITH CONTRAST HISTORY: Pelvis-low abd trauma, blunt, lower urinary tract trauma suspected COMPARISON: Same day hip radiographs. TECHNIQUE: Contiguous axial imaging from the level of the lung bases through the pubic symphysis was performed without IV contrast. Coronal and sagittal reconstructions were obtained. FINDINGS: Limited evaluation of the intra-abdominal structures without IV contrast. LOWER THORAX: Bibasilar subsegmental atelectasis. Tree-in-bud opacities in the right middle lobe and right lower lobe are partially visualized. Hypoattenuation of the blood pool relative to the myocardium is suggestive of anemia. LIVER: Mild hepatomegaly up to 18.4 cm in craniocaudal dimension. No focal hepatic lesions within the limitations of a noncontrast CT. Scattered calcified granulomas are seen.. GALLBLADDER: Cholelithiasis. No gallbladder wall thickening. SPLEEN: No splenomegaly. PANCREAS: Unremarkable within the extent visualized ADRENAL GLANDS: No adrenal nodules. KIDNEYS: Bilateral renal cortical simple cysts measuring up to 3.5 cm in the left lower pole. Bilateral perinephric stranding, right greater than left, nonspecific. Scattered vascular calcifications. No obstructive nephrolithiasis or urolithiasis is seen. No hydronephrosis. Asymmetric prominence of the right mid ureter at the level of the pelvic inlet on 2:106 with adjacent stranding, nonspecific. PERITONEUM AND RETROPERITONEUM: No free air or fluid. Right perinephric and periureteral stranding, nonspecific. LYMPH NODES: Mildly enlarged pelvic lymph nodes bilaterally up to 1.1 cm in the external iliac chain.. Enlarged retroperitoneal lymph nodes measuring up to 1 cm a. GI TRACT: No dilation or wall thickening. Retrocecal appendix on 4:57, normal. Laxity of the pelvic floor musculature with a small rectocele. Distal rectosigmoid wall thickening, nonspecific. PELVIS: The urinary bladder is markedly distended. Status post hysterectomy VESSELS: Scattered aortoiliac atherosclerotic calcifications. BONES AND SOFT TISSUES: No acute osseous abnormalities. Diffuse osteopenia. Advanced endplate degenerative changes in the lower lumbar spine with partial fusion of L4-L5.. Sarcopenia. Soft tissue swelling in the proximal lateral hip and lower abdominal wall soft tissues. Impression Limited evaluation without IV contrast. No acute fractures. Soft tissue swelling in the lower abdomen and proximal thigh. Distended urinary bladder. Prominent right ureter with right-sided periureteral and perinephric stranding.. Ascending infection/pyelonephritis is possible. No obstructive negative lithiasis or ureterolithiasis. No hydronephrosis.. Mildly enlarged retroperitoneal and pelvic lymph nodes, nonspecific, possibly reactive. Tree-in-bud opacities in the right middle and lower lobe, partially visualized. Findings suggest an infectious etiology or aspiration. Cholelithiasis without cholecystitis. Mild hepatomegaly. Advanced endplate changes at L4-L5. Diffuse osteopenia. Preliminary Report Dictated by Resident: Efrain Carrera I, Susanne Reilly MD., have reviewed this study and agree with the above report. XR CHEST 1 VW Narrative EXAM: XR CHEST 1 VW HISTORY: fluid overload COMPARISON: Chest x-ray 03/04/2020 FINDINGS: No focal consolidation, pleural effusion or pneumothorax is seen. The cardiac silhouette is within the upper limit of normal size. No acute bony abnormality. Impression No acute cardiopulmonary abnormality. Preliminary Report Dictated by Resident: Gerry Samayoa I, Hill Stockton MD., have reviewed this study and agree with the above report. ASSESSMENT/PLAN Jordana Henry is a 65 year old female with PMH as listed above, admitted to the hospital with: WOODY on CKD 5 with volume overload, uremia Being evaluated for PD as outpatient by Dr. Hwang Received IV lasix drip then discontinued per nephrology. Continue strict I/Os. Nephrology on board. Possible HD initiation if no improvement. Patient need PD placement therapy soon for peritoneal dialysis as outpatient Consult surgery Dr Clifton Anemia of kidney disease Ferritin 110. Defer epogen to nephrology. FOBT pending Monitor for blood loss. Iron 23 IV iron today Acute hypoxic respiratory failure Due to pulmonary edema, anasarca Arrange for home O2 IDDM A1c 9.2 Lantus 30 units daily SSI, accucheck ac & hs Generalized weakness PT consult Prophylaxis: DVT- scd Stress Ulcer: no indication for prophylaxis Code Status: addressed: full code Disposition: Home after PD catheter placement possibly tomorrow [place] [employer] was viewed during this stay AMIRA Bragg Associated attestation - Patrick Hoffmann MD - 04/20/2020 8:32 PM CDTI personally evaluated and examined the patient on 04/20/2020 and agree with the note as detailed by the nurse practitioner. I actively participated in the decision- making process. In summary, patient was admitted for WOODY on CKD5. Pt will initiate PD at home per nephrology. D/w Dr. Clifton/surgery regarding PD cath placement. Rest of plan per below. Patrick Hoffmann M.D. 04/20/2020 8:31 PM Jalen Hwang MD - 04/20/2020 3:11 PM CDT Medicine Progress Note Date of Service: 04/20/2020 Chief Complaint: Weakness right lower extremity 24-HOUR EVENTS: 64 year-old female with pmh of DM, HTN, CAD s/p stent, CKD, chronic respiratory failure (on 2 litersNC)who presents to the ED secondary to recurrent falls. Patient was noted to have fallen about 3 days ago and then again this morning. She notes that she get weak in the legs and that is what makes her fall. She denies hitting her head. She does note right hip pain. Of note, as for her kidney, hernephrologist Dr. Hwang has started the process of preparation for upcoming dialysis in the future. She continues to have weight gain but notes that she still urinates, although she does not know if it is at a decreased stream or frequency. Patient kidney function continued to decline as leg swelling SUBJECTIVE: Still have shortness of breath CURRENT MEDICATIONS - reviewed. PHYSICAL EXAM: Patient Vitals for the past 24 hrs: BP Temp Temp src Pulse Resp SpO2 Weight 07/28/20 1116 129/54 36.4 C (97.6 F) TEMPORAL ART 79 18 98 % 04/20/20 0822 16 98 % 04/20/20 0749 136/43 36.1 C (97 F) TEMPORAL ART 77 20 94 % 04/20/20 0419 (!) 148/56 36.7 C (98.1 F) TEMPORAL ART 76 20 96 % 302 lb (137 kg) 04/20/20 0117 (!) 146/55 36.8 C (98.2 F) TEMPORAL ART 79 18 96 % 04/19/202100 20 96 % 04/19/202049 18 95 % 04/19/202021 (!) 153/65 37 C (98.6 F) TEMPORAL ART 80 18 95 % 04/19/20 1544 (!) 151/50 36.8 C (98.2 F) TEMPORAL ART 84 20 98 % Intake/Output Summary (Last 24 hours) at 04/20/2020 1511 Last data filed at 04/20/2020 1116 Gross per 24 hour Intake 540 ml Output 4400 ml Net -3860 ml General: alert and oriented x 3; no apparent distress HEENT: pupils equal, round, reactive to light; extraocular movements intact; oropharynx clear; moistmucous membranes, normocephalic atraumatic Neck: supple, no lymphadenopathy, no bruits, no JVD, full range of motion Lungs: clear to auscultation bilaterally Cardio: S1, S2 normal; no murmurs, rubs or gallops, regular rate and rhythm Abdomen: soft; non-tender; non-distended; normoactive bowel sounds Extremities: no clubbing, cyanosis, +3 edema Skin: no rashes Neuro: cranial nerves II through XII grossly intact; sensation grossly intact; muscle strength 5 outof 5 in all four extremities LABS/IMAGING - reviewed, pertinent results as below: CBC BMP PT/INR WBC (10*3/L) Date Value 04/20/2020 11.64 (H) NA (mmol/L) Date Value 04/20/2020 138 No results found for: PT RBC (10*6/L) Date Value 04/20/2020 2.63 (L) K (mmol/L) Date Value 04/20/2020 4.2 No results found for: PTINR PLT (10*3/L) Date Value 04/20/2020 259 CALCIUM (mg/dL) Date Value 04/20/2020 9.0 HGB (g/dL) Date Value 04/20/2020 7.4 (L) CL (mmol/L) Date Value 04/20/2020 99 aPTT HCT (%) Date Value 04/20/2020 23.7 (L) BUN (mg/dL) Date Value 04/20/2020 136 (H) No results found for: APTTPAT CREATININE (mg/dL) Date Value 04/20/2020 4.19 (H) Radiology No final results containing an impression from the past 2 days were found. ASSESSMENT/PLAN Jordana Henry is a 65 year old female with PMH as listed above, admitted to the hospital with: CKD V , monitor for any uremic symptomatology to start hd if any new symptoms or labs worsening Cr stable at baseline , patient may need hd in near future CKD due to DM and HTN nephrosclerosis Avoid NSAID and contrast Patient need to initiated renal replacement therapy soon patient will need PD catheter placement if can be done this admission so she can be started renal replacement therapy peritoneal dialysis as outpatient upon discharge Continue diuresis will give extra dose of Lasix today Anemia of chronic disease/iron deficiency anemia S/Pepogen Will start the patient on IV iron Pneumonia per primary team , adjust antibiotics per renal dose Edema Will continue lasix, adjust lasix dose according to fluid balance and volemia status DM As per primary team, continue Insulin HTN Resume home meds Metabolic bone disease continuerenvela Anup Monzon RN - 04/20/2020 2:07 PM CDTClinicals efaxed to [facility] P: [phone], F: [phone] for home peritoneal dialysis. Awaiting acceptance and auth. Anup Monzon RN, BSN [facility] [employer] O [phone] F [phone] Elvia Grande MD - 04/19/2020 6:08 PM CDT NEPHROLOGY FOLLOW-UP CC CKD HPI A 64 Y/o woman with Pmhx of CKD V , CAD S/p PCI, Dm with neuropathy and HTN Presented with Rt leg weakness and fall Anemia , acute on chronic Hb 7.3, transfusion 1 PRBC if HB continue to be low continue ferrlicit PHYSICAL EXAM: BP (!) 142/52 | Pulse 80 | Temp 36.5 C (97.7 F) (Temporal Artery) | Resp 18 | Ht 5' 2" (1.575 m) | Wt 308 lb 9.6 oz (140 kg) | SpO2 98% | BMI 56.44 kg/m General: No respiratory distress Neuro: AAOx3, no focal deficits Psych: Normal affect LABS/IMAGING - reviewed, pertinent results as below: CBC BMP PT/INR WBC (10*3/L) Date Value 04/19/2020 12.20 (H) NA (mmol/L) Date Value 04/19/2020 137 No results found for: PT RBC (10*6/L) Date Value 04/19/2020 2.50 (L) K (mmol/L) Date Value 04/19/2020 4.2 No results found for: PTINR PLT (10*3/L) Date Value 04/19/2020 244 CALCIUM (mg/dL) Date Value 04/19/2020 8.1 (L) HGB (g/dL) Date Value 04/19/2020 7.1 (L) CL (mmol/L) Date Value 04/19/2020 97 (L) aPTT HCT (%) Date Value 04/19/2020 22.7 (L) BUN (mg/dL) Date Value 04/19/2020 134 (H) No results found for: APTTPAT CREATININE (mg/dL) Date Value 04/19/2020 4.86 (H) IMAGING- Hospital Encounter on 04/16/20 XR HIPS 3 VW BILATERAL Narrative EXAM: XR HIPS 3 VW BILATERAL HISTORY: 65 years-old Female with multiple falls. R/o fracture COMPARISON: Right hip x-ray 03/18/2015 FINDINGS: Radiographs of the bilateral hips demonstrate no acute fractures or dislocations. Joint spaces are preserved. Alignment is within normal limits. Vascular calcifications are noted. Pelvic phleboliths are noted. Impression No acute bony abnormality. Preliminary Report Dictated by Resident: Mauricio Ellington I, To Johnson MD., have reviewed this study and agree with the above report. CT ABDOMEN PELVIS WO CONTRAST Narrative CT ABDOMEN AND PELVIS WITH CONTRAST HISTORY: Pelvis-low abd trauma, blunt, lower urinary tract trauma suspected COMPARISON: Same day hip radiographs. TECHNIQUE: Contiguous axial imaging from the level of the lung bases through the pubic symphysis was performed without IV contrast. Coronal and sagittal reconstructions were obtained. FINDINGS: Limited evaluation of the intra-abdominal structures without IV contrast. LOWER THORAX: Bibasilar subsegmental atelectasis. Tree-in-bud opacities in the right middle lobe and right lower lobe are partially visualized. Hypoattenuation of the blood pool relative to the myocardium is suggestive of anemia. LIVER: Mild hepatomegaly up to 18.4 cm in craniocaudal dimension. No focal hepatic lesions within the limitations of a noncontrast CT. Scattered calcified granulomas are seen.. GALLBLADDER: Cholelithiasis. No gallbladder wall thickening. SPLEEN: No splenomegaly. PANCREAS: Unremarkable within the extent visualized ADRENAL GLANDS: No adrenal nodules. KIDNEYS: Bilateral renal cortical simple cysts measuring up to 3.5 cm in the left lower pole. Bilateral perinephric stranding, right greater than left, nonspecific. Scattered vascular calcifications. No obstructive nephrolithiasis or urolithiasis is seen. No hydronephrosis. Asymmetric prominence of the right mid ureter at the level of the pelvic inlet on 2:106 with adjacent stranding, nonspecific. PERITONEUM AND RETROPERITONEUM: No free air or fluid. Right perinephric and periureteral stranding, nonspecific. LYMPH NODES: Mildly enlarged pelvic lymph nodes bilaterally up to 1.1 cm in the external iliac chain.. Enlarged retroperitoneal lymph nodes measuring up to 1 cm a. GI TRACT: No dilation or wall thickening. Retrocecal appendix on 4:57, normal. Laxity of the pelvic floor musculature with a small rectocele. Distal rectosigmoid wall thickening, nonspecific. PELVIS: The urinary bladder is markedly distended. Status post hysterectomy VESSELS: Scattered aortoiliac atherosclerotic calcifications. BONES AND SOFT TISSUES: No acute osseous abnormalities. Diffuse osteopenia. Advanced endplate degenerative changes in the lower lumbar spine with partial fusion of L4-L5.. Sarcopenia. Soft tissue swelling in the proximal lateral hip and lower abdominal wall soft tissues. Impression Limited evaluation without IV contrast. No acute fractures. Soft tissue swelling in the lower abdomen and proximal thigh. Distended urinary bladder. Prominent right ureter with right-sided periureteral and perinephric stranding.. Ascending infection/pyelonephritis is possible. No obstructive negative lithiasis or ureterolithiasis. No hydronephrosis.. Mildly enlarged retroperitoneal and pelvic lymph nodes, nonspecific, possibly reactive. Tree-in-bud opacities in the right middle and lower lobe, partially visualized. Findings suggest an infectious etiology or aspiration. Cholelithiasis without cholecystitis. Mild hepatomegaly. Advanced endplate changes at L4-L5. Diffuse osteopenia. Preliminary Report Dictated by Resident: Efrain Carrera I, Susanne Reilly MD., have reviewed this study and agree with the above report. Assessment and plan CKD V , monitor for any uremic symptomatology to start hd if any new symptoms or labs worsening Cr stable at baseline , patient may need hd in near future CKD due to DM and HTN nephrosclerosis Avoid NSAID and contrast No need for renal replacement therapy at this time, monitor electrolytes, azotemia, avoid nephrotoxic medications , patient wants to start on PD Anemia of chronic disease Will order anemia W/u S/P epogen Transfuse to keep Hb >7.0 Pneumonia per primary team , adjust antibiotics per renal dose Edema Will continue lasix , adjust lasix dose according to fluid balance and volemia status DM As per primary team, continue Insulin HTN Resume home meds Metabolic bone disease continue renvela NTSNicol [facility] - 04/19/2020 3:36 PM CDTSubjective Patient ID: Jordana Henry is a 65 year old female. Care Management Social Functional Assessment Patient Name: Jordana Henry Age: [age] year old Sex: female Patient's Previous Admission Date at [facility]: 10/30/2019 Current diagnosis and co-morbidities: Weakness;Anemia due to chronic kidney disease Readmission Questions: Was patient discharged from any acute care hospital within the last 30 days: No Social Functional Assessment: Primary language spoken/preferred: Hong Konger Mental Status: Alert & Oriented to Person,Place & Time Patient's support system: Parent Primary Solutions Operator: Other;Child Name and phone number of primary caregiver: scott Dunn [phone] and Reny Portillo dtr [phone] MPOA: No Living Arrangement: Home Address of living arrangement : [address] [place] [id number] Persons living in home: Self;Other Names & numbers of persons living in home: Chica chavez [phone] Barriers to returning home: None Baseline functional status- ambulation: Requires minimal to moderate assistance Functional status-baseline personal care: Requires minimal to moderate assistance Baseline functional status- driving: Dependent Baseline functional status- grocery shopping: Requires minimal to moderate assistance Functional status-baseline housekeeping: Requires minimal to moderate assistance Functional status-baseline meal prep: Requires minimal to moderate assistance Current functional status same as prior: Yes Do you have a PCP?: Yes Name of PCP: [facility] Agency: Yes Name of Home Health Agency: [facility] , [address] [place] [address] () [phone] (F) [phone] Previous or current Home Health Care Agency: Current Provider Services: No DME Company: Yes Name of DME company: [employer] [address], [facility] [address], [place], (Ph) [phone] (F) [phone] Previous or current DME company: Current Equipment: Wheelchair: Electric;Walker;Bedside Commode;Shower Chair;Wheelchair: Manual;O2: LPM;O2:Portable tank available Hemodialysis: No Community resources utilized: None Funding Resources: Medicare Replacement Prescription coverage plan: Medicare Part D Pharmacy where meds are filled: Other Other pharmacy: [facility] Anticipated services prior to disharge: Continue Medical Eval Expected mode of discharge transportation: Same as support system Additional Recommendations for DC: Medical clearance Additional info required for discharge planning: Pending medical evaluation Recommended discharge plan: Home;Update/Resume orders SFA Complete: Social Functional Assessment complete: Yes Alcohol Use Screening (AUDIT-C) How often do you have a drink containing alcohol?: Never SCORE: 0 Did patient elect to have resources provided: No Role of Care Management explained. Any issues or concerns with obtaining/affording your medications at home: no. Are you or your support system able to mushroom picker medications at discharge: yes. Review of Systems Objective Physical Exam Assessment/Plan Home with scott, will resume services with [facility] NATALIE Snyder Air Conditioning Installer Supervisor - Care Management [facility] [phone] [email or web address] Paco Silva MD - 04/19/2020 1:23 PM CDT [facility] Hospitalist Progress Note SUBJECTIVE: No acute events overnight. CURRENT MEDICATIONS - reviewed. Current Facility-Administered Medications Medication Dose Route Frequency Last Rate Last Dose bumetanide (BUMEX) tablet 2 mg 2 mg Oral QAM+PM 2 mg at 04/19/20 0815 sodium ferric gluconate (FERRLECIT) 125 mg in NaCl 0.9% (NS) 100 mL IV piggyback 125 mg IV Piggyback DAILY 125 mg at 04/19/20 0815 acetaminophen (TYLENOL) tablet 650 mg 650 mg Oral Q6HPRN allopurinoL (ZYLOPRIM) tablet 100 mg 100 mg Oral DAILY 100 mg at 04/19/20 0815 amLODIPine (NORVASC) tablet 10 mg 10 mg Oral DAILY 10 mg at 04/19/20 0815 budesonide-formoteroL (SYMBICORT) 160-4.5 mcg/actuation inhaler 2 Puff 2 Puff Inhalation BID 2 Puff at 04/19/20 0821 calcium carbonate (OSCAL-500) tablet 500 mg 500 mg Oral TID MEALS 500 mg at 04/19/20 1148 dextrose 50 % in water (D50W) injection 25 mL 25 mL Slow IV Push PRN glucagon (GLUCAGEN DIAGNOSTIC KIT) injection 1 mg 1 mg Intramuscular PRN insulin glargine (LANTUS U-100) injection 30 Units 30 Units Subcutaneous DAILY 30 Units at 04/19/20 0808 levothyroxine (SYNTHROID) tablet 100 mcg 100 mcg Oral QAM-0600 100 mcg at 04/19/20 0554 metoprolol succinate XL (TOPROL XL) tablet 50 mg 50 mg Oral DAILY 50 mg at 04/19/20 0815 ondansetron (ZOFRAN (PF)) injection 4 mg 4 mg Slow IV Push Q6HPRN sevelamer (RENVELA) tablet 1,600 mg 1,600 mg Oral TID MEALS 1,600 mg at 04/19/20 1148 Sliding Scale Insulin - Aspart (NOVOLOG) + Fsbg Testing Subcutaneous AC+HS 2 Units at 04/19/20 1148 PHYSICAL EXAM: BP (!) 142/52 | Pulse 80 | Temp 36.5 C (97.7 F) (Temporal Artery) | Resp 18 | Ht 5' 2" (1.575 m) | Wt 308 lb 9.6 oz (140 kg) | SpO2 98% | BMI 56.44 kg/m General: No respiratory distress Neuro: AAOx3, no focal deficits Psych: Normal affect LABS/IMAGING - reviewed, pertinent results as below: CBC BMP PT/INR WBC (10*3/L) Date Value 04/19/2020 12.20 (H) NA (mmol/L) Date Value 04/19/2020 137 No results found for: PT RBC (10*6/L) Date Value 04/19/2020 2.50 (L) K (mmol/L) Date Value 04/19/2020 4.2 No results found for: PTINR PLT (10*3/L) Date Value 04/19/2020 244 CALCIUM (mg/dL) Date Value 04/19/2020 8.1 (L) HGB (g/dL) Date Value 04/19/2020 7.1 (L) CL (mmol/L) Date Value 04/19/2020 97 (L) aPTT HCT (%) Date Value 04/19/2020 22.7 (L) BUN (mg/dL) Date Value 04/19/2020 134 (H) No results found for: APTTPAT CREATININE (mg/dL) Date Value 04/19/2020 4.86 (H) IMAGING- Hospital Encounter on 04/16/20 XR HIPS 3 VW BILATERAL Narrative EXAM: XR HIPS 3 VW BILATERAL HISTORY: 65 years-old Female with multiple falls. R/o fracture COMPARISON: Right hip x-ray 03/18/2015 FINDINGS: Radiographs of the bilateral hips demonstrate no acute fractures or dislocations. Joint spaces are preserved. Alignment is within normal limits. Vascular calcifications are noted. Pelvic phleboliths are noted. Impression No acute bony abnormality. Preliminary Report Dictated by Resident: Mauricio Ellington I, To Johnson MD., have reviewed this study and agree with the above report. CT ABDOMEN PELVIS WO CONTRAST Narrative CT ABDOMEN AND PELVIS WITH CONTRAST HISTORY: Pelvis-low abd trauma, blunt, lower urinary tract trauma suspected COMPARISON: Same day hip radiographs. TECHNIQUE: Contiguous axial imaging from the level of the lung bases through the pubic symphysis was performed without IV contrast. Coronal and sagittal reconstructions were obtained. FINDINGS: Limited evaluation of the intra-abdominal structures without IV contrast. LOWER THORAX: Bibasilar subsegmental atelectasis. Tree-in-bud opacities in the right middle lobe and right lower lobe are partially visualized. Hypoattenuation of the blood pool relative to the myocardium is suggestive of anemia. LIVER: Mild hepatomegaly up to 18.4 cm in craniocaudal dimension. No focal hepatic lesions within the limitations of a noncontrast CT. Scattered calcified granulomas are seen.. GALLBLADDER: Cholelithiasis. No gallbladder wall thickening. SPLEEN: No splenomegaly. PANCREAS: Unremarkable within the extent visualized ADRENAL GLANDS: No adrenal nodules. KIDNEYS: Bilateral renal cortical simple cysts measuring up to 3.5 cm in the left lower pole. Bilateral perinephric stranding, right greater than left, nonspecific. Scattered vascular calcifications. No obstructive nephrolithiasis or urolithiasis is seen. No hydronephrosis. Asymmetric prominence of the right mid ureter at the level of the pelvic inlet on 2:106 with adjacent stranding, nonspecific. PERITONEUM AND RETROPERITONEUM: No free air or fluid. Right perinephric and periureteral stranding, nonspecific. LYMPH NODES: Mildly enlarged pelvic lymph nodes bilaterally up to 1.1 cm in the external iliac chain.. Enlarged retroperitoneal lymph nodes measuring up to 1 cm a. GI TRACT: No dilation or wall thickening. Retrocecal appendix on 4:57, normal. Laxity of the pelvic floor musculature with a small rectocele. Distal rectosigmoid wall thickening, nonspecific. PELVIS: The urinary bladder is markedly distended. Status post hysterectomy VESSELS: Scattered aortoiliac atherosclerotic calcifications. BONES AND SOFT TISSUES: No acute osseous abnormalities. Diffuse osteopenia. Advanced endplate degenerative changes in the lower lumbar spine with partial fusion of L4-L5.. Sarcopenia. Soft tissue swelling in the proximal lateral hip and lower abdominal wall soft tissues. Impression Limited evaluation without IV contrast. No acute fractures. Soft tissue swelling in the lower abdomen and proximal thigh. Distended urinary bladder. Prominent right ureter with right-sided periureteral and perinephric stranding.. Ascending infection/pyelonephritis is possible. No obstructive negative lithiasis or ureterolithiasis. No hydronephrosis.. Mildly enlarged retroperitoneal and pelvic lymph nodes, nonspecific, possibly reactive. Tree-in-bud opacities in the right middle and lower lobe, partially visualized. Findings suggest an infectious etiology or aspiration. Cholelithiasis without cholecystitis. Mild hepatomegaly. Advanced endplate changes at L4-L5. Diffuse osteopenia. Preliminary Report Dictated by Resident: Efrain Carrera I, Susanne Reilly MD., have reviewed this study and agree with the above report. XR CHEST 1 VW Narrative EXAM: XR CHEST 1 VW HISTORY: fluid overload COMPARISON: Chest x-ray 03/04/2020 FINDINGS: No focal consolidation, pleural effusion or pneumothorax is seen. The cardiac silhouette is within the upper limit of normal size. No acute bony abnormality. Impression No acute cardiopulmonary abnormality. Preliminary Report Dictated by Resident: Gerry Samayoa I, Hill Stockton MD., have reviewed this study and agree with the above report. ASSESSMENT/PLAN Jordana Henry is a 65 year old female with PMH as listed above, admitted to the hospital with: WOODY on CKD 5 with volume overload, uremia Being evaluated for PD as outpatient by Dr. Hwang Received IV lasix drip then discontinued per nephrology. Continue strict I/Os. Nephrology on board. Possible HD initiation if no improvement. Trend BMP Anemia of kidney disease Ferritin 110. Defer epogen to nephrology. FOBT pending Monitor for blood loss. Acute hypoxic respiratory failure Due to pulmonary edema, anasarca Arrange for home O2 Generalized weakness PT consult Prophylaxis: DVT- SCD due to anemia Stress Ulcer: no indication for prophylaxis Code Status: Full Disposition: Home vs SNF Paco Silva MD Ryan Palmer MD - 04/18/2020 3:30 PM CDT Subjective A 64 Y/o woman with Pmhx of CKD V , CAD S/p PCI, Dm with neuropathy and HTN Presented with Rt leg weakness and fall Today No change in clinical status PT/O tr Cr stable Hb 7.3, will transfuse 1 PRBC tomorrow if HB continue to be low Past Medical History: Diagnosis Date Bowel incontinence related to artificial sweeteners Cataract CHF (congestive heart failure) COPD (chronic obstructive pulmonary disease) Diabetes HTN (hypertension) Neuropathy Stented coronary artery x3 Past Surgical History: Procedure Laterality Date DILATION AND CURETTAGE (SHX) HYSTERECTOMY endometriosis TONSILLECTOMY TUBAL LIGATION Family History Problem Relation Age of Onset Heart Mother 55 [place] (myocardial infarction) Mother Kidney failure Maternal Aunt 50 Social History Socioeconomic History Marital status: Spouse name: Not on file Number of children: 4 Years of education: Not on file Highest education level: Associate degree: academic program Occupational History Occupation: Disabled Social Needs Financial resource strain: Hard Food insecurity: Worry: Never true Inability: Never true Transportation needs: Medical: No Non-medical: No Tobacco Use Smoking status: Former Smoker Last attempt to quit: 09/24/2000 Years since quittin.5 Smokeless tobacco: Never Used Substance and Sexual Activity Alcohol use: No Drug use: No Sexual activity: Not on file Lifestyle Physical activity: Days per week: Not on file Minutes per session: Not on file Stress: Not on file Relationships Social connections: Talks on phone: Not on file Gets together: Not on file Attends buddhist service: Not on file Active member of club or organization: Not on file Attends meetings of clubs or organizations: Not on file Relationship status: Not on file Intimate partner violence: Fear of current or ex partner: Not on file Emotionally abused: Not on file Physically abused: Not on file Forced sexual activity: Not on file Other Topics Concern Not on file Social History Narrative Lives at home with her niece who does most of the chores and cleaning. Gets around with cane or walker, uses a motorized scooter for grocery shopping. Allergies Allergen Reactions Penicillin Rash Current Discharge Medication List STOP taking these medications allopurinoL 100 mg tablet Comments: Reason for Stopping: budesonide-formoteroL (SYMBICORT) 160-4.5 mcg/actuation inhaler Comments: Reason for Stopping: bumetanide 1 mg tablet Comments: Reason for Stopping: insulin glargine U-300 conc (TOUJEO MAX U-300 SOLOSTAR) 300 unit/mL (3 mL) InPn Comments: Reason for Stopping: furosemide 40 mg tablet Comments: Reason for Stopping: insulin glargine 100 unit/mL injection Comments: Reason for Stopping: levoFLOXacin 250 mg tablet Comments: Reason for Stopping: metOLazone 5 mg tablet Comments: Reason for Stopping: DULoxetine 30 mg CDRS Comments: Reason for Stopping: cholecalciferol, vitamin D3, 1,000 unit tablet Comments: Reason for Stopping: amLODIPine 10 mg tablet Comments: Reason for Stopping: ca acetate-alum sulfate topical packet Comments: Reason for Stopping: calcium carbonate 500 mg calcium (1,250 mg) tablet Comments: Reason for Stopping: insulin regular human 100 unit/mL injection Comments: Reason for Stopping: vitamin b complex-vitamin c-folic acid 0.8 mg tablet Comments: Reason for Stopping: atorvastatin 40 mg tablet Comments: Reason for Stopping: gabapentin 300 mg capsule Comments: Reason for Stopping: albuterol (VENTOLIN) 90 mcg/actuation inhaler Comments: Reason for Stopping: aspirin 81 mg EC tablet Comments: Reason for Stopping: metoprolol succinate XL (TOPROL XL) 25 mg 24 hr tablet Comments: Reason for Stopping: levothyroxine (SYNTHROID) 100 mcg tablet Comments: Reason for Stopping: montelukast (SINGULAIR) 10 mg tablet Comments: Reason for Stopping: Current Facility-Administered Medications: acetaminophen (TYLENOL) tablet 650 mg, 650 mg, Oral, Q6HPRN, Maria Elena Wagoner MD allopurinoL (ZYLOPRIM) tablet 100 mg, 100 mg, Oral, DAILY, Maria Elena Wagoner MD, 100 mg at 04/18/20 0753 amLODIPine (NORVASC) tablet 10 mg, 10 mg, Oral, DAILY, Maria Elena Wagoner MD, 10 mg at 04/18/20 0753 aspirin EC tablet 81 mg, 81 mg, Oral, DAILY, Maria Elena Wagoner MD, 81 mg at 04/18/20 0753 budesonide-formoteroL (SYMBICORT) 160-4.5 mcg/actuation inhaler 2 Puff, 2 Puff, Inhalation, BID, Maria Elena Wagoner MD, 2 Puff at 04/18/20 0713 calcium carbonate (OSCAL-500) tablet 500 mg, 500 mg, Oral, TID MEALS, Maria Elena Wagoner MD, 500 mg at 04/18/20 1231 dextrose 50 % in water (D50W) injection 25 mL, 25 mL, Slow IV Push, PRN, Maria Elena Wagoner MD glucagon (GLUCAGEN DIAGNOSTIC KIT) injection 1 mg, 1 mg, Intramuscular, PRN, Maria Elena Wagoner MD heparin (porcine) injection 5,000 Units, 5,000 Units, Subcutaneous, Q12H, Maria Elena Wagoner MD, 5,000 Units at 04/18/20 0752 insulin glargine (LANTUS U-100) injection 30 Units, 30 Units, Subcutaneous, DAILY, Paco Silva MD, 30 Units at 04/18/20 0753 levothyroxine (SYNTHROID) tablet 100 mcg, 100 mcg, Oral, QAM-0600, Maria Elena Wagoner MD, 100 mcg at 04/18/20 0532 metoprolol succinate XL (TOPROL XL) tablet 50 mg, 50 mg, Oral, DAILY, Maria Elena Wagoner MD, 50 mgat 04/18/20 0753 ondansetron (ZOFRAN (PF)) injection 4 mg, 4 mg, Slow IV Push, Q6HPRN, Maria Elena Wagoner MD sevelamer (RENVELA) tablet 1,600 mg, 1,600 mg, Oral, TID MEALS, Ryan Godinez MD, 1,600 mg at 04/18/20 1231 Sliding Scale Insulin - Aspart (NOVOLOG) + Fsbg Testing, , Subcutaneous, AC+HS, Maria Elena Wagoner MD, 4 Units at 04/18/20 1322 traMADol (ULTRAM) tablet 50 mg, 50 mg, Oral, Q8HPRN, Maria Elena Wagoner MD, 50 mg at 04/17/202001 BP 137/60 | Pulse 80 | Temp 36.8 C (98.2 F) (Temporal Artery) | Resp 18 | Ht 1.575 m (5' 2") | Wt 141 kg (310 lb 12.8 oz) | SpO2 (!) 86% | BMI 56.85 kg/m Physical exam General; AAOx3, NAD. Obese Neck: supple, no elevated JVD Chest: basal rales Heart: RRR, normal S1,2 no murmur or rub Abd; Soft, NT Ext : trace edema, rt tenderness CBC WBC (10*3/L) Date Value 04/18/2020 11.80 (H) RBC (10*6/L) Date Value 04/18/2020 2.58 (L) PLT (10*3/L) Date Value 04/18/2020 240 HGB (g/dL) Date Value 04/18/2020 7.3 (L) HCT (%) Date Value 04/18/2020 23.2 (L) CMP NA (mmol/L) Date Value 04/18/2020 136 K (mmol/L) Date Value 04/18/2020 4.2 CALCIUM (mg/dL) Date Value 04/18/2020 7.4 (L) CL (mmol/L) Date Value 04/18/2020 98 BUN (mg/dL) Date Value 04/18/2020 141 (H) CREATININE (mg/dL) Date Value 04/18/2020 4.68 (H) GLUCOSE (mg/dL) Date Value 04/18/2020 152 (H) CO2 TOTAL (mmol/L) Date Value 04/18/2020 27 ALBUMIN (g/dL) Date Value 04/16/2020 4.0 T PROTEIN (g/dL) Date Value 04/16/2020 8.6 (H) TOTAL BILI (mg/dL) Date Value 04/16/2020 0.3 ALT(SGPT) (U/L) Date Value 12/24/2018 25 ALTv (U/L) Date Value 04/16/2020 16 AST(SGOT) (U/L) Date Value 04/16/2020 22 ALK PHOS (U/L) Date Value 04/16/2020 93 Assessment and plan CKD V Cr stable CKD due to DM and HTN nephrosclerosis Avoid NSAID and contrast No need for renal replacement therapy at this time , patient wants to start on PD Anemia of chronic disease Will order anemia W/u S/P epogen Transfuse to keep Hb >7.0 Edema Will continue lasix DM As per primary team HTN Resume home meds Metabolic bone disease cont renvela NT Paco Silva MD - 04/18/2020 12:32 PM CDT [facility] Hospitalist Progress Note SUBJECTIVE: No acute events overnight. CURRENT MEDICATIONS - reviewed. Current Facility-Administered Medications Medication Dose Route Frequency Last Rate Last Dose acetaminophen (TYLENOL) tablet 650 mg 650 mg Oral Q6HPRN allopurinoL (ZYLOPRIM) tablet 100 mg 100 mg Oral DAILY 100 mg at 04/18/20 0753 amLODIPine (NORVASC) tablet 10 mg 10 mg Oral DAILY 10 mg at 04/18/20 0753 aspirin EC tablet 81 mg 81 mg Oral DAILY 81 mg at 04/18/20 0753 budesonide-formoteroL (SYMBICORT) 160-4.5 mcg/actuation inhaler 2 Puff 2 Puff Inhalation BID 2 Puff at 04/18/20 0713 calcium carbonate (OSCAL-500) tablet 500 mg 500 mg Oral TID MEALS 500 mg at 04/18/20 1231 dextrose 50 % in water (D50W) injection 25 mL 25 mL Slow IV Push PRN glucagon (GLUCAGEN DIAGNOSTIC KIT) injection 1 mg 1 mg Intramuscular PRN heparin (porcine) injection 5,000 Units 5,000 Units Subcutaneous Q12H 5,000 Units at 04/18/200752 insulin glargine (LANTUS U-100) injection 30 Units 30 Units Subcutaneous DAILY 30 Units at 04/18/20 0753 levothyroxine (SYNTHROID) tablet 100 mcg 100 mcg Oral QAM-0600 100 mcg at 04/18/20 0532 metoprolol succinate XL (TOPROL XL) tablet 50 mg 50 mg Oral DAILY 50 mg at 04/18/20 0753 ondansetron (ZOFRAN (PF)) injection 4 mg 4 mg Slow IV Push Q6HPRN sevelamer (RENVELA) tablet 1,600 mg 1,600 mg Oral TID MEALS 1,600 mg at 04/18/20 1231 Sliding Scale Insulin - Aspart (NOVOLOG) + Fsbg Testing Subcutaneous AC+HS Stopped at 04/18/20 0730 traMADol (ULTRAM) tablet 50 mg 50 mg Oral Q8HPRN 50 mg at 04/17/202001 PHYSICAL EXAM: BP 137/60 | Pulse 80 | Temp 36.8 C (98.2 F) (Temporal Artery) | Resp 18 | Ht 5' 2" (1.575 m) | Wt 310 lb 12.8 oz (141 kg) | SpO2 (!) 86% | BMI 56.85 kg/m General: No respiratory distress Neuro: AAOx3, no focal deficits Psych: Normal affect LABS/IMAGING - reviewed, pertinent results as below: CBC BMP PT/INR WBC (10*3/L) Date Value 04/18/2020 11.80 (H) NA (mmol/L) Date Value 04/18/2020 136 No results found for: PT RBC (10*6/L) Date Value 04/18/2020 2.58 (L) K (mmol/L) Date Value 04/18/2020 4.2 No results found for: PTINR PLT (10*3/L) Date Value 04/18/2020 240 CALCIUM (mg/dL) Date Value 04/18/2020 7.4 (L) HGB (g/dL) Date Value 04/18/2020 7.3 (L) CL (mmol/L) Date Value 04/18/2020 98 aPTT HCT (%) Date Value 04/18/2020 23.2 (L) BUN (mg/dL) Date Value 04/18/2020 141 (H) No results found for: APTTPAT CREATININE (mg/dL) Date Value 04/18/2020 4.68 (H) IMAGING- Hospital Encounter on 04/16/20 XR HIPS 3 VW BILATERAL Narrative EXAM: XR HIPS 3 VW BILATERAL HISTORY: 65 years-old Female with multiple falls. R/o fracture COMPARISON: Right hip x-ray 03/18/2015 FINDINGS: Radiographs of the bilateral hips demonstrate no acute fractures or dislocations. Joint spaces are preserved. Alignment is within normal limits. Vascular calcifications are noted. Pelvic phleboliths are noted. Impression No acute bony abnormality. Preliminary Report Dictated by Resident: Mauricio Ellington I, To Johnson MD., have reviewed this study and agree with the above report. CT ABDOMEN PELVIS WO CONTRAST Narrative CT ABDOMEN AND PELVIS WITH CONTRAST HISTORY: Pelvis-low abd trauma, blunt, lower urinary tract trauma suspected COMPARISON: Same day hip radiographs. TECHNIQUE: Contiguous axial imaging from the level of the lung bases through the pubic symphysis was performed without IV contrast. Coronal and sagittal reconstructions were obtained. FINDINGS: Limited evaluation of the intra-abdominal structures without IV contrast. LOWER THORAX: Bibasilar subsegmental atelectasis. Tree-in-bud opacities in the right middle lobe and right lower lobe are partially visualized. Hypoattenuation of the blood pool relative to the myocardium is suggestive of anemia. LIVER: Mild hepatomegaly up to 18.4 cm in craniocaudal dimension. No focal hepatic lesions within the limitations of a noncontrast CT. Scattered calcified granulomas are seen.. GALLBLADDER: Cholelithiasis. No gallbladder wall thickening. SPLEEN: No splenomegaly. PANCREAS: Unremarkable within the extent visualized ADRENAL GLANDS: No adrenal nodules. KIDNEYS: Bilateral renal cortical simple cysts measuring up to 3.5 cm in the left lower pole. Bilateral perinephric stranding, right greater than left, nonspecific. Scattered vascular calcifications. No obstructive nephrolithiasis or urolithiasis is seen. No hydronephrosis. Asymmetric prominence of the right mid ureter at the level of the pelvic inlet on 2:106 with adjacent stranding, nonspecific. PERITONEUM AND RETROPERITONEUM: No free air or fluid. Right perinephric and periureteral stranding, nonspecific. LYMPH NODES: Mildly enlarged pelvic lymph nodes bilaterally up to 1.1 cm in the external iliac chain.. Enlarged retroperitoneal lymph nodes measuring up to 1 cm a. GI TRACT: No dilation or wall thickening. Retrocecal appendix on 4:57, normal. Laxity of the pelvic floor musculature with a small rectocele. Distal rectosigmoid wall thickening, nonspecific. PELVIS: The urinary bladder is markedly distended. Status post hysterectomy VESSELS: Scattered aortoiliac atherosclerotic calcifications. BONES AND SOFT TISSUES: No acute osseous abnormalities. Diffuse osteopenia. Advanced endplate degenerative changes in the lower lumbar spine with partial fusion of L4-L5.. Sarcopenia. Soft tissue swelling in the proximal lateral hip and lower abdominal wall soft tissues. Impression Limited evaluation without IV contrast. No acute fractures. Soft tissue swelling in the lower abdomen and proximal thigh. Distended urinary bladder. Prominent right ureter with right-sided periureteral and perinephric stranding.. Ascending infection/pyelonephritis is possible. No obstructive negative lithiasis or ureterolithiasis. No hydronephrosis.. Mildly enlarged retroperitoneal and pelvic lymph nodes, nonspecific, possibly reactive. Tree-in-bud opacities in the right middle and lower lobe, partially visualized. Findings suggest an infectious etiology or aspiration. Cholelithiasis without cholecystitis. Mild hepatomegaly. Advanced endplate changes at L4-L5. Diffuse osteopenia. Preliminary Report Dictated by Resident: Susanne Pina MD., have reviewed this study and agree with the above report. XR CHEST 1 VW Narrative EXAM: XR CHEST 1 VW HISTORY: fluid overload COMPARISON: Chest x-ray 03/04/2020 FINDINGS: No focal consolidation, pleural effusion or pneumothorax is seen. The cardiac silhouette is within the upper limit of normal size. No acute bony abnormality. Impression No acute cardiopulmonary abnormality. Preliminary Report Dictated by Resident: Gerry Samayoa I, Hill Stockton MD., have reviewed this study and agree with the above report. ASSESSMENT/PLAN Jordana Henry is a 65 year old female with PMH as listed above, admitted to the hospital with: WOODY on CKD 5 with volume overload, uremia Being evaluated for PD as outpatient by Dr. Hwang IV lasix alondra. Strict I/Os. Nephrology on board. Possible HD initiation if no improvement. Trend BMP Anemia of kidney disease Ferritin 110. Defer epogen to nephrology. Monitor for blood loss. Acute hypoxic respiratory failure Due to pulmonary edema, anasarca Arrange for home O2 Generalized weakness PT consult Prophylaxis: DVT- heparin Stress Ulcer: no indication for prophylaxis Code Status: Full Disposition: Home when medically cleared Paco Silva MD NTMaranda Steele, PT - 04/18/2020 9:38 AM CDT04/18/2020 PT Consult received, chart reviewed and evaluation deferred today. PT spoke with RN and was okay to perform evaluation, upon further review and speaking with MD, will wait for evaluation due to low H/Hand on IV lasix right now, stated for PT to wait. PT will continue to monitor and perform evaluation once appropriate thank you. Maranda Reynolds, PT [place] PT License [id number] [facility] Rehabilitation Services Department (phone) (fax) Paco Case MD - 04/17/2020 6:26 PM CDT [facility] Hospitalist Progress Note SUBJECTIVE: No acute events overnight. CURRENT MEDICATIONS - reviewed. Current Facility-Administered Medications Medication Dose Route Frequency Last Rate Last Dose acetaminophen (TYLENOL) tablet 650 mg 650 mg Oral Q6HPRN allopurinoL (ZYLOPRIM) tablet 100 mg 100 mg Oral DAILY 100 mg at 04/17/20 0806 amLODIPine (NORVASC) tablet 10 mg 10 mg Oral DAILY 10 mg at 04/17/20 0806 aspirin EC tablet 81 mg 81 mg Oral DAILY 81 mg at 04/17/20 0806 budesonide-formoteroL (SYMBICORT) 160-4.5 mcg/actuation inhaler 2 Puff 2 Puff Inhalation BID 2 Puff at 04/17/20 0751 calcium carbonate (OSCAL-500) tablet 500 mg 500 mg Oral TID MEALS 500 mg at 04/17/20 1631 dextrose 50 % in water (D50W) injection 25 mL 25 mL Slow IV Push PRN epoetin morteza-epbx (RETACRIT) injection 10,000 Units 10,000 Units Subcutaneous ONCE AT 1999 furosemide (LASIX) 200 mg in NaCl 0.9% (NS) 100 mL infusion 10 mg/hr IV Infusion CONTINUOUS 5 mL/hr at 04/17/20 0939 10 mg/hr at 04/17/20 0939 glucagon (GLUCAGEN DIAGNOSTIC KIT) injection 1 mg 1 mg Intramuscular PRN heparin (porcine) injection 5,000 Units 5,000 Units Subcutaneous Q12H 5,000 Units at 04/17/200758 levothyroxine (SYNTHROID) tablet 100 mcg 100 mcg Oral QAM-0600 100 mcg at 04/17/20 0535 metoprolol succinate XL (TOPROL XL) tablet 50 mg 50 mg Oral DAILY 50 mg at 04/17/20 0806 ondansetron (ZOFRAN (PF)) injection 4 mg 4 mg Slow IV Push Q6HPRN sevelamer (RENVELA) tablet 1,600 mg 1,600 mg Oral TID MEALS 1,600 mg at 04/17/20 1630 Sliding Scale Insulin - Aspart (NOVOLOG) + Fsbg Testing Subcutaneous AC+HS 4 Units at 04/17/20 1631 traMADol (ULTRAM) tablet 50 mg 50 mg Oral Q8HPRN 50 mg at 04/17/20 0325 PHYSICAL EXAM: BP (!) 145/62 | Pulse 85 | Temp 37.1 C (98.8 F) | Resp 18 | Ht 5' 2" (1.575 m) | Wt 305 lb (138.3 kg) | SpO2 90% | BMI 55.79 kg/m General: No respiratory distress Neuro: AAOx3, no focal deficits Psych: Normal affect LABS/IMAGING - reviewed, pertinent results as below: CBC BMP PT/INR WBC (10*3/L) Date Value 04/16/2020 10.33 NA (mmol/L) Date Value 04/16/2020 141 No results found for: PT RBC (10*6/L) Date Value 04/16/2020 2.80 (L) K (mmol/L) Date Value 04/16/2020 4.2 No results found for: PTINR PLT (10*3/L) Date Value 04/16/2020 255 CALCIUM (mg/dL) Date Value 04/16/2020 7.2 (L) HGB (g/dL) Date Value 04/16/2020 8.0 (L) CL (mmol/L) Date Value 04/16/2020 97 (L) aPTT HCT (%) Date Value 04/16/2020 26.0 (L) BUN (mg/dL) Date Value 04/16/2020 141 (H) No results found for: APTTPAT CREATININE (mg/dL) Date Value 04/16/2020 5.02 (H) IMAGING- Hospital Encounter on 04/16/20 XR HIPS 3 VW BILATERAL Narrative EXAM: XR HIPS 3 VW BILATERAL HISTORY: 65 years-old Female with multiple falls. R/o fracture COMPARISON: Right hip x-ray 03/18/2015 FINDINGS: Radiographs of the bilateral hips demonstrate no acute fractures or dislocations. Joint spaces are preserved. Alignment is within normal limits. Vascular calcifications are noted. Pelvic phleboliths are noted. Impression No acute bony abnormality. Preliminary Report Dictated by Resident: Mauricio Ellington I, To Johnson MD., have reviewed this study and agree with the above report. CT ABDOMEN PELVIS WO CONTRAST Narrative CT ABDOMEN AND PELVIS WITH CONTRAST HISTORY: Pelvis-low abd trauma, blunt, lower urinary tract trauma suspected COMPARISON: Same day hip radiographs. TECHNIQUE: Contiguous axial imaging from the level of the lung bases through the pubic symphysis was performed without IV contrast. Coronal and sagittal reconstructions were obtained. FINDINGS: Limited evaluation of the intra-abdominal structures without IV contrast. LOWER THORAX: Bibasilar subsegmental atelectasis. Tree-in-bud opacities in the right middle lobe and right lower lobe are partially visualized. Hypoattenuation of the blood pool relative to the myocardium is suggestive of anemia. LIVER: Mild hepatomegaly up to 18.4 cm in craniocaudal dimension. No focal hepatic lesions within the limitations of a noncontrast CT. Scattered calcified granulomas are seen.. GALLBLADDER: Cholelithiasis. No gallbladder wall thickening. SPLEEN: No splenomegaly. PANCREAS: Unremarkable within the extent visualized ADRENAL GLANDS: No adrenal nodules. KIDNEYS: Bilateral renal cortical simple cysts measuring up to 3.5 cm in the left lower pole. Bilateral perinephric stranding, right greater than left, nonspecific. Scattered vascular calcifications. No obstructive nephrolithiasis or urolithiasis is seen. No hydronephrosis. Asymmetric prominence of the right mid ureter at the level of the pelvic inlet on 2:106 with adjacent stranding, nonspecific. PERITONEUM AND RETROPERITONEUM: No free air or fluid. Right perinephric and periureteral stranding, nonspecific. LYMPH NODES: Mildly enlarged pelvic lymph nodes bilaterally up to 1.1 cm in the external iliac chain.. Enlarged retroperitoneal lymph nodes measuring up to 1 cm a. GI TRACT: No dilation or wall thickening. Retrocecal appendix on 4:57, normal. Laxity of the pelvic floor musculature with a small rectocele. Distal rectosigmoid wall thickening, nonspecific. PELVIS: The urinary bladder is markedly distended. Status post hysterectomy VESSELS: Scattered aortoiliac atherosclerotic calcifications. BONES AND SOFT TISSUES: No acute osseous abnormalities. Diffuse osteopenia. Advanced endplate degenerative changes in the lower lumbar spine with partial fusion of L4-L5.. Sarcopenia. Soft tissue swelling in the proximal lateral hip and lower abdominal wall soft tissues. Impression Limited evaluation without IV contrast. No acute fractures. Soft tissue swelling in the lower abdomen and proximal thigh. Distended urinary bladder. Prominent right ureter with right-sided periureteral and perinephric stranding.. Ascending infection/pyelonephritis is possible. No obstructive negative lithiasis or ureterolithiasis. No hydronephrosis.. Mildly enlarged retroperitoneal and pelvic lymph nodes, nonspecific, possibly reactive. Tree-in-bud opacities in the right middle and lower lobe, partially visualized. Findings suggest an infectious etiology or aspiration. Cholelithiasis without cholecystitis. Mild hepatomegaly. Advanced endplate changes at L4-L5. Diffuse osteopenia. Preliminary Report Dictated by Resident: Efrain Carrera XR CHEST 1 VW Narrative EXAM: XR CHEST 1 VW HISTORY: fluid overload COMPARISON: Chest x-ray 03/04/2020 FINDINGS: No focal consolidation, pleural effusion or pneumothorax is seen. The cardiac silhouette is within the upper limit of normal size. No acute bony abnormality. Impression No acute cardiopulmonary abnormality. Preliminary Report Dictated by Resident: Gerry Samayoa I, Hill Stockton MD., have reviewed this study and agree with the above report. ASSESSMENT/PLAN Jordana Henry is a 65 year old female with PMH as listed above, admitted to the hospital with: WOODY on CKD 5 with volume overload, uremia Being evaluated for PD as outpatient by Dr. Eri cantu. Strict I/Os. Nephrology on board. Possible HD initiation if no improvement. Trend BMP Acute hypoxic respiratory failure Due to pulmonary edema, anasarca Arrange for home O2 Generalized weakness PT consult Prophylaxis: DVT- heparin Stress Ulcer: no indication for prophylaxis Code Status: Full Disposition: Home when medically cleared [place] [employer] was verified during stay Paco Silva MD Martin Jackson RT - 04/17/2020 8:08 AM CDTO2 Saturation at REST on Room Air = 86% O2 Saturation at REST on 3 LPM of Oxygen = 94% documented in this encounter Plan of Treatment Name Type Priority Associated Diagnoses Order S chedule COVID-19 (ID NOW RAPID LAB Routine ONCE for 1 Occurrences TESTING) starting 2019 until 04/21/2020 CBC WITH DIFF LAB Routine EVERY 24 HOURS (START TIME ADJUSTABLE) for 1 Days starting 2019 until 04/22/2020 BASIC METABOLIC PANEL LAB Routine EVERY 24 HOURS (START TIME (NA, K, CL, CO2, ADJUSTABLE) for 1 Days GLUCOSE, BUN, starting 04/22 until CREATININE, CA) 04/22/2020 Health Maintenance Due Date Last Done Comments DTaP,Tdap,and Td Vaccines (1 - Tdap) 1965 Breast Cancer Screening (MAMMOGRAM) 1994 COLONOSCOPY 2004 Zoster Recombinant Vaccine (SHINGRIX) (1 of 2) 2004 Medicare Wellness Visit 2019 Osteoporosis Screening 2019 PNEUMOCOCCAL VACCINES 65+ (1 of 2 - PCV13) 2019 INFLUENZA VACCINE (#1) 2020 Depression Screening 04/21/2021 04/21/2020 HEPATITIS C (HCV) SCREEN Completed 12/23/2018 documented as of this encounter Implants Implanted Type [employer] Analyst Device Identifier Shelf Exp iration Model / Serial Date / Lot Stent STENT Description:3 coronary artery stents documented as of this encounter Procedures Procedure Name Priority Date/Time Associated Comments Diagnosis POCT GLUCOSE Routine 04/21/2020 3:47 Results for this (AUTOMATED) PM CDT procedure are i n the results section. ABORH CONFIRMATION Routine 04/21/2020 1:50 Resul ts for this PM CDT procedure are i n the results section. HB ABO GROUPING STAT 04/21/2020 12:55 Results for this PM CDT procedure are i n the results section. POCT GLUCOSE Routine 04/21/2020 11:16 Results for this (AUTOMATED) AM CDT procedure are i n the results section. POCT GLUCOSE Routine 04/21/2020 7:52 Results for this (AUTOMATED) AM CDT procedure are i n the results section. POCT GLUCOSE Routine 04/20/2020 8:37 Results for this (AUTOMATED) PM CDT procedure are i n the results section. OCCULT (GUAIAC) Routine 04/20/2020 5:53 Results for this BLOOD PM CDT procedure are i n the results section. POCT GLUCOSE Routine 04/20/2020 3:50 Results for this (AUTOMATED) PM CDT procedure are i n the results section. POCT GLUCOSE Routine 04/20/2020 11:20 Results for this (AUTOMATED) AM CDT procedure are i n the results section. POCT GLUCOSE Routine 04/20/2020 7:42 Results for this (AUTOMATED) AM CDT procedure are i n the results section. CBC WITH DIFF Routine 04/20/2020 3:14 Results fo r this AM CDT procedure are i n the results section. BASIC METABOLIC Routine 04/20/2020 3:14 Results for this PANEL (NA, K, CL, AM CDT procedure are in CO2, GLUCOSE, BUN, the resul ts CREATININE, CA) section. POCT GLUCOSE Routine 04/19/2020 7:58 Results for this (AUTOMATED) PM CDT procedure are i n the results section. POCT GLUCOSE Routine 04/19/2020 3:46 Results for this (AUTOMATED) PM CDT procedure are i n the results section. POCT GLUCOSE Routine 04/19/2020 11:06 Results for this (AUTOMATED) AM CDT procedure are i n the results section. POCT GLUCOSE Routine 04/19/2020 7:20 Results for this (AUTOMATED) AM CDT procedure are i n the results section. CBC WITH DIFF Routine 04/19/2020 3:34 Results fo r this AM CDT procedure are i n the results section. BASIC METABOLIC Routine 04/19/2020 3:34 Results for this PANEL (NA, K, CL, AM CDT procedure are in CO2, GLUCOSE, BUN, the resul ts CREATININE, CA) section. POCT GLUCOSE Routine 04/18/2020 8:50 Results for this (AUTOMATED) PM CDT procedure are i n the results section. POCT GLUCOSE Routine 04/18/2020 3:50 Results for this (AUTOMATED) PM CDT procedure are i n the results section. POCT GLUCOSE Routine 04/18/2020 11:21 Results for this (AUTOMATED) AM CDT procedure are i n the results section. POCT GLUCOSE Routine 04/18/2020 7:28 Results for this (AUTOMATED) AM CDT procedure are i n the results section. CBC WITH DIFF Routine 04/18/2020 5:06 Results fo r this AM CDT procedure are i n the results section. BASIC METABOLIC Routine 04/18/2020 3:12 Results for this PANEL (NA, K, CL, AM CDT procedure are in CO2, GLUCOSE, BUN, the resul ts CREATININE, CA) section. FOLATE Routine 04/18/2020 3:12 Results for this AM CDT procedure are i n the results section. VITAMIN B12, LEVEL Routine 04/18/2020 3:12 Resul ts for this AM CDT procedure are i n the results section. FERRITIN SERUM Routine 04/18/2020 3:12 Results f or this AM CDT procedure are i n the results section. POCT GLUCOSE Routine 04/17/2020 7:14 Results for this (AUTOMATED) PM CDT procedure are i n the results section. POCT GLUCOSE Routine 04/17/2020 4:24 Results for this (AUTOMATED) PM CDT procedure are i n the results section. IRON PANEL Routine 04/17/2020 1:14 Results for this PM CDT procedure are i n the results section. POCT GLUCOSE Routine 04/17/2020 10:58 Results for this (AUTOMATED) AM CDT procedure are i n the results section. POCT GLUCOSE Routine 04/17/2020 7:46 Results for this (AUTOMATED) AM CDT procedure are i n the results section. ACUTE CARE VENOUS Routine 04/17/2020 5:18 Result s for this BLOOD GAS AM CDT procedure are i n the results section. GLYCOSYLATED Routine 04/17/2020 3:21 Results for this HEMOGLOBIN (A1C) AM CDT procedure a re in the results section. POCT GLUCOSE Routine 04/17/2020 1:09 Results for this (AUTOMATED) AM CDT procedure are i n the results section. POCT GLUCOSE Routine 04/17/2020 12:25 Results for this (AUTOMATED) AM CDT procedure are i n the results section. XR CHEST 1 VW STAT 04/16/2020 10:31 Uremia Results for this PM CDT Chronic diastolic procedure are in congestive heart the results failure section. Weakness URINALYSIS STAT 04/16/2020 10:07 Fall, initial Results fo r this PM CDT encounter procedure are i n the results section. COVID-19 (ID NOW STAT 04/16/2020 9:59 Uremia Results for this RAPID TESTING) PM CDT Chronic diastolic procedur e are in congestive heart the results failure section. Weakness N-TERMINAL PRO-BNP STAT Add-On 04/16/2020 8:39 Uremia Results for this PM CDT Chronic diastolic procedure are in congestive heart the results failure section. Weakness Anemia of chronic renal failure, unspecified CKD stage CBC WITH DIFF STAT 04/16/2020 8:39 Fall, initial Results f or this PM CDT encounter procedure are i n the results section. COMP. METABOLIC STAT 04/16/2020 8:39 Fall, initial Results for this PANEL ([id number]) PM CDT encounter procedure are in the results section. MAGNESIUM STAT Add-On 04/16/2020 8:39 Fall, initial Results fo r this PM CDT encounter procedure are i n the results section. PHOSPHORUS STAT Add-On 04/16/2020 8:39 Fall, initial Results fo r this PM CDT encounter procedure are i n the results section. CT ABDOMEN PELVIS WO STAT 04/16/2020 8:25 Fall, initial Re sults for this CONTRAST PM CDT encounter procedure are i n the results section. UNILATERAL VENOUS STAT 04/16/2020 7:31 DUPLEX LOWER PM CDT EXTREMITY BY VASCULAR LAB XR HIPS 3 VW STAT 04/16/2020 6:09 Fall, initial Results fo r this BILATERAL PM CDT encounter procedure are i n the results section. HOSPITAL ADMISSION Routine 04/16/2020 12:01 AM CDT HOSPITAL ADM - MISC Routine 04/16/2020 12:01 AM CDT EMERGENCY DEPARTMENT Routine 04/16/2020 12:01 DOCUMENTS AM CDT documented in this encounter Results POCT GLUCOSE (AUTOMATED) (04/21/2020 3:47 PM CDT) Pathologist Sig nature POCT GLU 201 (H) 70 - 110 mg/dL [facility] Specimen Blood Performing Organization Address City/[facility] Phone Number [facility] CLIA: [id number], [address] [place] [address] ABORH CONFIRMATION (04/21/2020 1:50 PM CDT) Pathologist Sig nature ABO & RH B Positive LAB Comment: Performed at [facility] Laboratory [facility] Blood Bank [address] [place] [address] Toll Free: [phone] CLIA No. [id number] Specimen Performing Organization Address [facility]ofl Phone Number BLD LAB Type and Screen - ONCE STAT (04/21/2020 12:55 PM CDT) Pathologist Sig nature ABO & RH B Positive LAB Comment: Performed at [facility] Laboratory [facility] Blood Bank [address] [place], [place] [address] Toll Free: [phone] CLIA No. [id number] IAT Negative LAB Comment: Performed at [facility] Laboratory [facility] Blood [facility] [address] [place] [address] Toll Free: [phone] CLIA No. [id number] Specimen Blood - VENOUS Performing Organization Address City/[facility]/Zipcode Phone Number BLD LAB POCT GLUCOSE (AUTOMATED) (04/21/2020 11:16 AM CDT) Pathologist Sig nature POCT GLU 170 (H) 70 - 110 mg/dL [facility] Specimen Blood Performing Organization Address City/[facility]/Zipcode Phone Number [facility] CLIA: [id number], [address] [place] [address] POCT GLUCOSE (AUTOMATED) (04/21/2020 7:52 AM CDT) Pathologist Sig nature POCT GLU 156 (H) 70 - 110 mg/dL [facility] Specimen Blood Performing Organization Address [facility] Phone Number [facility] CLIA: [id number], [address] [place], [place] [address] POCT GLUCOSE (AUTOMATED) (04/20/2020 8:37 PM CDT) Pathologist Sig nature POCT GLU 183 (H) 70 - 110 mg/dL [facility] Specimen Blood Performing Organization Address [facility] Phone Number [facility] CLIA: [id number], [address] [place] [address] OCCULT (GUAIAC) BLOOD (04/20/2020 5:53 PM CDT) Pathologist Sig nature Occult (guaiac) Blood Negative Negative [facility] Specimen Stool - ANAL Performing Organization Address [facility] Phone Number [facility] CLIA: [id number], [address] [place] [address] [address] [facility] POCT GLUCOSE (AUTOMATED) (04/20/2020 3:50 PM CDT) Pathologist Sig nature POCT GLU 221 (H) 70 - 110 mg/dL [facility] Specimen Blood Performing Organization Address [facility] Phone Number [facility] CLIA: [id number], [address] [place] [address] POCT GLUCOSE (AUTOMATED) (04/20/2020 11:20 AM CDT) Pathologist Sig nature POCT GLU 250 (H) 70 - 110 mg/dL [facility] Specimen Blood Performing Organization Address [facility] Phone Number [facility] CLIA: [id number], [address] [place], [place] [address] POCT GLUCOSE (AUTOMATED) (04/20/2020 7:42 AM CDT) Pathologist Sig nature POCT GLU 166 (H) 70 - 110 mg/dL [facility] Specimen Blood Performing Organization Address City/State/Zipcode Phone Number [facility] CLIA: [id number], [address] [place] [address] Basic Metabolic Panel (NA, K, CL, CO2, GLUCOSE, BUN, CREATININE, CA) (04/20/2020 3:14 AM CDT) NA 138 135 - 145 [facility] mmol/L [facility] K 4.2 3.5 - 5.0 [facility] mmol/L [facility] CL 99 98 - 108 mmol/L [facility] CO2 TOTAL 29 23 - 31 mmol/L [facility] AGAP 10 2 - 16 [facility] BUN 136 (H) 7 - 23 mg/dL [facility] GLUCOSE 162 (H) 70 - 110 mg/dL [facility] CREATININE 4.19 (H) 0.50 - 1.04 [facility] mg/dL [facility] CALCIUM 9.0 8.6 - 10.6 [facility] mg/dL [facility] eGFR Calculation 10.6 mL/min/1.73m2 [facility] (Non-[facility] LABORATORY [place]) eGFR Calculation 12.9 mL/min/1.73m2 [facility] () [facility] Specimen Blood - VENOUS Narrative Performed At Association of Glomerular Filtration Rate (GFR) [facility] and Staging of Kidney Disease* + + +- + | GFR (mL/min/1.73 m2) | With Kidney Damage | Without Kidney Damage + + +- + | >90 | Stage one | Normal + + +- + | 60-89 | Stage two | Decreased GFR + + +- + | 30-59 | Stage three | Stage three + + +- + | 15-29 | Stage four | Stage four + + +- + | <15 (or dialysis) | Stage five | Stage five + + +- + *Each stage assumes the associated GFR level has been in effect for at least three months. Stages 1 to 5, with or without kidney disease, indicate chronic kidney disease. Notes: Determination of stages one and two (with eGFR >59mL/min/1.73 m2) requires estimation of kidney damage for at least three months as defined by structural or functional abnormalities of the kidney, manifested by either: Pathological abnormalities or Markers of kidney damage (including abnormalities in the composition of the blood or urine or abnormalities in imaging tests). Performing Organization Address City/State/Zipcode Phone Number [facility] CLIA: [id number], [address] [place] [address] CBC with Differential (04/20/2020 3:14 AM CDT) Pathologist Sig nature WBC 11.64 (H) 4.30 - 11.10 [facility] 10*3/L H[facility]PITAL LAB[facility]ORY RBC 2.63 (L) 3.93 - 5.25 [facility] 10*6/L [facility] HGB 7.4 (L) 11.6 - 15.0 [facility] g/dL [facility] HCT 23.7 (L) 35.7 - 45.2 % [facility] MCV 90.1 80.6 - 95.5 fL [facility] MCH 28.1 25.9 - 32.8 pg [facility] MCHC 31.2 (L) 31.6 - 35.1 [facility] g/dL [facility] RDW-SD 43.2 39.0 - 49.9 fL [facility] RDW-CV 13.2 12.0 - 15.5 % [facility] PLT 259 166 - 358 [facility] 10*3/L [facility] MPV 10.5 9.5 - 12.9 fL [facility] NRBC/100 WBC 0.0 0.0 - 10.0 /100 [facility] WBCs [facility] NRBC x10^3 <0.01 10*3/L [facility] GRAN MAT (NEUT) % 73.3 % [facility] IMM GRAN % 0.50 % [facility] LYMPH % 14.9 % [facility] MONO % 6.8 % [facility] EOS % 4.1 % [facility] BASO % 0.4 % [facility]ORATORY GRAN MAT x10^3(ANC) 8.52 (H) 1.88 - 7.09 [facility] 10*3/uL HOSPITAL LABORATORY IMM GRAN x10^3 0.06 0.00 - 0.06 [facility] 10*3/uL HOSPITAL LABORATORY LYMPH x10^3 1.74 1.32 - 3.29 [facility] 10*3/uL HOSPITAL LABORATORY MONO x10^3 0.79 0.33 - 0.92 [facility] 10*3/uL [facility] EOS x10^3 0.48 (H) 0.03 - 0.39 [facility] 10*3/uL [facility] BASO x10^3 0.05 0.01 - 0.07 [facility] 103/uL [facility] Specimen Blood - VENOUS Performing Organization Address [facility] Phone Number [facility] CLIA: [id number], [address] POCT GLUCOSE (AUTOMATED) (04/19/2020 7:58 PM CDT) Pathologist Sig nature POCT GLU 240 (H) 70 - 110 mg/dL [facility] LABOR[facility]ORY Specimen Blood Performing Organization Address [facility] Phone Number [facility] CLIA: [id number], [address] POCT GLUCOSE (AUTOMATED) (04/19/2020 3:46 PM CDT) Pathologist Sig nature POCT GLU 179 (H) 70 - 110 mg/dL [facility]OR[facility] Specimen Blood Performing Organization Address [facility] Phone Number [facility] CLIA: [id number], [address] POCT GLUCOSE (AUTOMATED) (04/19/2020 11:06 AM CDT) Pathologist Sig nature POCT GLU 195 (H) 70 - 110 mg/dL [facility]OR[facility] Specimen Blood Performing Organization Address [facility] Phone Number [facility] CLIA: [id number], [address] POCT GLUCOSE (AUTOMATED) (04/19/2020 7:20 AM CDT) Pathologist Sig nature POCT GLU 159 (H) 70 - 110 mg/dL [facility]OR[facility] Specimen Blood Performing Organization Address [facility]/State/Zipcode Phone Number [facility] CLIA: [id number], [address] Basic Metabolic Panel (NA, K, CL, CO2, GLUCOSE, BUN, CREATININE, CA) (04/19/2020 3:34 AM CDT) NA 137 135 - 145 [facility] mmol/L [facility] K 4.2 3.5 - 5.0 [facility] mmol/L [facility] CL 97 (L) 98 - 108 mmol/L [facility] CO2 TOTAL 30 23 - 31 mmol/L [facility] AGAP 10 2 - 16 [facility] BUN 134 (H) 7 - 23 mg/dL [facility] GLUCOSE 158 (H) 70 - 110 mg/dL [facility] CREATININE 4.86 (H) 0.50 - 1.04 [facility] mg/dL [facility] CALCIUM 8.1 (L) 8.6 - 10.6 [facility] mg/dL [facility] eGFR Calculation 8.9 mL/min/1.73m2 [facility] (Non-[facility] LABORATORY Ukrainian) eGFR Calculation 10.8 mL/min/1.73m2 [facility] () [facility] Specimen Blood - ARM, LEFT Narrative Performed At [facility] of Glomerular Filtration Rate (GFR) [facility] and Staging of Kidney Disease* + + +- + | GFR (mL/min/1.73 m2) | With Kidney Damage | Without Kidney Damage + + +- + | >90 | Stage one | Normal + + +- + | 60-89 | Stage two | Decreased GFR + + +- + | 30-59 | Stage three | Stage three + + +- + | 15-29 | Stage four | Stage four + + +- + | <15 (or dialysis) | Stage five | Stage five + + +- + *Each stage assumes the associated GFR level has been in effect for at least three months. Stages 1 to 5, with or without kidney disease, indicate chronic kidney disease. Notes: Determination of stages one and two (with eGFR >59mL/min/1.73 m2) requires estimation of kidney damage for at least three months as defined by structural or functional abnormalities of the kidney, manifested by either: Pathological abnormalities or Markers of kidney damage (including abnormalities in the composition of the blood or urine or abnormalities in imaging tests). Performing Organization Address City/State/Zipcode Phone Number [facility] CLIA: [id number], [address] [place] [address] CBC with Differential (04/19/2020 3:34 AM CDT) Pathologist Sig nature WBC 12.20 (H) 4.30 - 11.10 [facility] 10*3/L [facility] RBC 2.50 (L) 3.93 - 5.25 [facility] 10*6/L [facility] HGB 7.1 (L) 11.6 - 15.0 [facility] g/dL [facility] HCT 22.7 (L) 35.7 - 45.2 % [facility] MCV 90.8 80.6 - 95.5 fL [facility]OR[facility] MCH 28.4 25.9 - 32.8 pg [facility] MCHC 31.3 (L) 31.6 - 35.1 [facility] g/dL [facility] RDW-SD 43.3 39.0 - 49.9 fL [facility] RDW-CV 13.2 12.0 - 15.5 % [facility]OR[facility] PLT 244 166 - 358 [facility] 10*3/L [facility] MPV 10.4 9.5 - 12.9 fL [facility] NRBC/100 WBC 0.0 0.0 - 10.0 /100 [facility] WBCs [facility] NRBC x10^3 <0.01 10*3/L [facility] LABOR[facility]ORY GRAN MAT (NEUT) % 69.4 % [facility] LABORAT[facility] IMM GRAN % 0.70 % [facility] LYMPH % 17.9 % [facility] MONO % 6.9 % [facility] EOS % 4.7 % [facility] BASO % 0.4 % [facility]OR[facility] GRAN MAT x10^3(ANC) 8.48 (H) 1.88 - 7.09 [facility] 10*3/uL [facility] IMM GRAN x10^3 0.08 (H) 0.00 - 0.06 [facility] 10*3/uL HOSPITAL LABORATORY LYMPH x10^3 2.18 1.32 - 3.29 [facility] 10*3/uL HOSPITAL LABORATORY MONO x10^3 0.84 0.33 - 0.92 [facility] 10*3/uL HOSPITAL LABORATORY EOS x10^3 0.57 (H) 0.03 - 0.39 [facility] 10*3/uL HOSPITAL LABORATORY BASO x10^3 0.05 0.01 - 0.07 [facility] 10*3/uL [facility] Specimen Blood - ARM, LEFT Performing Organization Address [facility] [place] Phone Number [facility] CLIA: [id number], [address] POCT GLUCOSE (AUTOMATED) (04/18/2020 8:50 PM CDT) Pathologist Sig nature POCT GLU 202 (H) 70 - 110 mg/dL [facility]OR[facility] Specimen Blood Performing Organization Address [facility] Phone Number [facility] CLIA: [id number], [address] POCT GLUCOSE (AUTOMATED) (04/18/2020 3:50 PM CDT) Pathologist Sig nature POCT GLU 248 (H) 70 - 110 mg/dL [facility] LABORATORY Specimen Blood Performing Organization Address [facility] Phone Number [facility] CLIA: [id number], [address] POCT GLUCOSE (AUTOMATED) (04/18/2020 11:21 AM CDT) Pathologist Sig nature POCT GLU 239 (H) 70 - 110 mg/dL [facility] LABORATORY Specimen Blood Performing Organization Address [facility] Phone Number [facility] CLIA: [id number], [address] POCT GLUCOSE (AUTOMATED) (04/18/2020 7:28 AM CDT) Pathologist Sig nature POCT GLU 140 (H) 70 - 110 mg/dL [facility] LABORATORY Specimen Blood Performing Organization Address [facility] [place] [facility] Phone Number [facility] CLIA: [id number], [id number] CBC with Differential (04/18/2020 5:06 AM CDT) [facility] nature WBC 11.80 (H) 4.30 - 11.10 [facility] 10*3/L HOSPITAL LABORATORY RBC 2.58 (L) 3.93 - 5.25 [facility] 10*6/L [facility] HGB 7.3 (L) 11.6 - 15.0 [facility] g/dL [facility] HCT 23.2 (L) 35.7 - 45.2 % [facility] LABORATORY MCV 89.9 80.6 - 95.5 fL [facility]OR[facility] MCH 28.3 25.9 - 32.8 pg [facility] MCHC 31.5 (L) 31.6 - 35.1 [facility] g/dL [facility] RDW-SD 43.2 39.0 - 49.9 fL [facility] RDW-CV 13.2 12.0 - 15.5 % [facility] LABORATORY PLT 240 166 - 358 [facility] 10*3/L [facility] MPV 10.5 9.5 - 12.9 fL [facility] NRBC/100 WBC 0.0 0.0 - 10.0 /100 [facility] WBCs [facility] NRBC x10^3 <0.01 10*3/L [facility]OR[facility]ORY GRAN MAT (NEUT) % 66.9 % [facility] LABORAT[facility] IMM GRAN % 1.00 % [facility] LYMPH % 20.6 % [facility] MONO % 7.1 % [facility] EOS % 4.0 % [facility] BASO % 0.4 % [facility] GRAN MAT x10^3(ANC) 7.89 (H) 1.88 - 7.09 [facility] 10*3/uL HOSPITAL LABORATORY IMM GRAN x10^3 0.12 (H) 0.00 - 0.06 [facility] 10*3/uL HOSPITAL LABORATORY LYMPH x10^3 2.43 1.32 - 3.29 [facility] 10*3/uL HOSPITAL LABORATORY MONO x10^3 0.84 0.33 - 0.92 [facility] 10*3/uL HOSPITAL LABORATORY EOS x10^3 0.47 (H) 0.03 - 0.39 [facility] 10*3/uL HOSPITAL LABORATORY BASO x10^3 0.05 0.01 - 0.07 [facility] 10*3/uL HOSPITAL LABORATORY Specimen Blood - VENOUS Performing Organization Address [facility] Phone Number [facility] CLIA: [id number], [address] [place], [place] [address] VITAMIN B12, LEVEL (04/18/2020 3:12 AM CDT) Pathologist Sig nature VIT B12 496 240 - 930 pg/mL [facility] Specimen Blood - VENOUS Narrative Performed At Biotin has been reported to cause a positive bias, int erpret [facility] results relative to patient's use of biotin. Performing Organization Address City/[facility] Phone Number [facility] CLIA: [id number], [address] [place] [address] [facility] FERRITIN SERUM (04/18/2020 3:12 AM CDT) Pathologist Sig nature FERRITIN 110.0 11.0 - 264.0 ng/mL [facility] Specimen Blood - VENOUS Narrative Performed At Biotin has been reported to cause a negative [facility]OR[facility] bias, interpret results relative to patient's use of biotin. Performing Organization Address [facility] Phone Number [facility] CLIA: [id number], [address] [place], [place] [address] FOLATE (04/18/2020 3:12 AM CDT) FOLATE SER 11.3Comment: Biotin 3.0 - 20.0 [facility] has been reported ng/mL SERVICES to cause a positive bias, interpret results relative to patient's use of biotin. Specimen Blood - VENOUS Performing Organization Address City/[facility] Phone Number [facility] CLIA: [id number], [address] [place] [address] [facility] Basic Metabolic Panel (NA, K, CL, CO2, GLUCOSE, BUN, CREATININE, CA) (04/18/2020 3:12 AM CDT) NA 136 135 - 145 [facility] mmol/L [facility] K 4.2 3.5 - 5.0 [facility] mmol/L [facility] CL 98 98 - 108 mmol/L [facility] CO2 TOTAL 27 23 - 31 mmol/L [facility] AGAP 11 2 - 16 [facility] BUN 141 (H) 7 - 23 mg/dL [facility] GLUCOSE 152 (H) 70 - 110 mg/dL [facility] CREATININE 4.68 (H) 0.50 - 1.04 [facility] mg/dL [facility] CALCIUM 7.4 (L) 8.6 - 10.6 [facility] mg/dL [facility] eGFR Calculation 9.3 mL/min/1.73m2 [facility] (Non[facility] LABORATORY Ukrainian) eGFR Calculation 11.3 mL/min/1.73m2 [facility] () [facility] Specimen Blood - VENOUS Narrative Performed At [facility] Glomerular Filtration Rate (GFR) [facility] and Staging of Kidney Disease* + + +- + | GFR (mL/min/1.73 m2) | With Kidney Damage | Without Kidney Damage + + +- + | >90 | Stage one | Normal + + +- + | 60-89 | Stage two | Decreased GFR + + +- + | 30-59 | Stage three | Stage three + + +- + | 15-29 | Stage four | Stage four + + +- + | <15 (or dialysis) | Stage five | Stage five + + +- + *Each stage assumes the associated GFR level has been in effect for at least three months. Stages 1 to 5, with or without kidney disease, indicate chronic kidney disease. Notes: Determination of stages one and two (with eGFR >59mL/min/1.73 m2) requires estimation of kidney damage for at least three months as defined by structural or functional abnormalities of the kidney, manifested by either: Pathological abnormalities or Markers of kidney damage (including abnormalities in the composition of the blood or urine or abnormalities in imaging tests). Performing Organization Address City/State/Zipcode Phone Number [facility] CLIA: [id number], [address] [place], [place] [address] POCT GLUCOSE (AUTOMATED) (04/17/2020 7:14 PM CDT) Pathologist Sig nature POCT GLU 220 (H) 70 - 110 mg/dL [facility] Specimen Blood Performing Organization Address [facility] Phone Number [facility] CLIA: [id number], [address] POCT GLUCOSE (AUTOMATED) (04/17/2020 4:24 PM CDT) Pathologist Sig nature POCT GLU 214 (H) 70 - 110 mg/dL [facility] Specimen Blood Performing Organization Address [facility] [place] Phone Number [facility] CLIA: [id number], [address] IRON PANEL (04/17/2020 1:14 PM CDT) Pathologist Sig nature IRON 23 (L) 50 - 160 ug/dL [facility] TIBC 276 250 - 410 ug/dL [facility] % FE SAT 8 (L) 20 - 50 % [facility] Specimen Blood - ARM, LEFT Performing Organization Address [facility] Phone Number [facility] CLIA: [id number], [address] POCT GLUCOSE (AUTOMATED) (04/17/2020 10:58 AM CDT) Pathologist Sig nature POCT GLU 292 (H) 70 - 110 mg/dL [facility] Specimen Blood Performing Organization Address [facility] Phone Number [facility] CLIA: [id number], [address] POCT GLUCOSE (AUTOMATED) (04/17/2020 7:46 AM CDT) Pathologist Sig nature POCT GLU 211 (H) 70 - 110 mg/dL [facility] Specimen Blood Performing Organization Address [facility] Phone Number [facility] CLIA: [id number], [address] ACUTE CARE VENOUS BLOOD GAS (04/17/2020 5:18 AM CDT) Pathologist Sig nature PH 7.28 (L) 7.32 - 7.42 [facility] PCO2 SARAH 64 (H) 41 - 51 mmHg [facility] PO2 SARAH 44 (H) 25 - 40 mmHg [facility] HCO3 SARAH 29 (H) 24 - 28 mEq/L [facility] AC VBE(BEAKER) 1.4 mEq/L [facility] Specimen Blood - VENOUS Performing Organization Address [facility] Phone Number [facility] CLIA: [id number], [address] GLYCOSYLATED HEMOGLOBIN (A1C) (04/17/2020 3:21 AM CDT) Pathologist Sig nature HGB A1C 9.2 (H) 4.0 - 6.0 % [facility] Specimen Blood - VENOUS Narrative Performed At %A1C (NGSP) Interpretation (ADA) [facility] 4.8-5.6 Normal or (Non-Diabetic Ra nge) 5.7-6.4 Increased Risk (Pre-Diabet ic) >6.5 Diabetes Indicated Performing Organization Address [facility] Phone Number [facility] CLIA: [id number], [address] POCT GLUCOSE (AUTOMATED) (04/17/2020 1:09 AM CDT) Pathologist Sig nature POCT GLU 100 70 - 110 mg/dL [facility] Specimen Blood Performing Organization Address [facility] Phone Number [facility] CLIA: [id number], [address] POCT GLUCOSE (AUTOMATED) (04/17/2020 12:25 AM CDT) Pathologist Sig nature POCT GLU 45 (LL) 70 - 110 mg/dL [facility] Specimen Blood Performing Organization Address [facility] Phone Number [facility] CLIA: [id number], [address] XR CHEST 1 VW (04/16/2020 10:31 PM CDT) Specimen Impressions Performed At PACS/VR/DOSE No acute cardiopulmonary abnormality. Preliminary Report Dictated by Resident: Hill Clemons MD., have reviewed this study and agree with the above report. Narrative Performed At EXAM: XR CHEST 1 VW PACS/VR/DOSE HISTORY: fluid overload COMPARISON: Chest x-ray 03/04/2020 FINDINGS: No focal consolidation, pleural effusion or pneumothorax is seen. The cardiac silhouette is within the upp er limit of normal size. No acute bony abnormality. Procedure Note [facility], Radiant Results Inft User - 2019 10:50 PM CDT EXAM: XR CHEST 1 VW HISTORY: fluid overload COMPARISON: Chest x-ray 03/04/2020 FINDINGS: No focal consolidation, pleural effusion or pneumothorax is seen. The cardiac silhouette is within the upp er limit of normal size. No acute bony abnormality. IMPRESSION No acute cardiopulmonary abnormality. Preliminary Report Dictated by Resident: Hill Clemons MD., have reviewed th is study and agree with the above report. Performing Organization Address [facility] Phone Number [facility] URINALYSIS (04/16/2020 10:07 PM CDT) Pathologist Sig nature APPEARANCE Cloudy (A) Clear [facility] COLOR Yellow Yellow [facility] PH 5.0 4.8 - 8.0 [facility] SP GRAVITY 1.013 1.003 - 1.030 [facility] GLU U QUAL Normal Normal [facility] BLOOD 1+ (A) Negative [facility] KETONES Negative Negative [facility] PROTEIN 100 mg/dL (A) Negative [facility] UROBILIN Normal Normal [facility] BILIRUBIN Negative Negative [facility] NITRITE Negative Negative [facility] LEUK LINSEY Negative Negative [facility] RBC/HPF 7 (H) 0 - 3 HPF [facility] WBC/HPF 2 0 - 5 HPF [facility] BACTERIA Few (A) Negative [facility] SQ EPITH 1 HPF [facility] Specimen Urine - URINE, CATHETERIZED Performing Organization Address City/[facility]/Zipcode Phone Number [facility] CLIA: [id number], [address] [place], [place] [address] [facility] COVID-19 ([facility] NOW RAPID TESTING) (04/16/2020 9:59 PM CDT) SARS-CoV-2 Rapid ID Not Detected Not Detected [facility] Specimen Swab - NASOPHARYNGEAL SWAB Narrative Performed At ID NOW COVID-19 Assay is an isothermal nucleic [facility] acid amplification test intended for the qualitative detection of nucleic acid from SARS-CoV-2 viral RNA in nasopharyngeal (PAEDIATRIC THORACIC PHYSICIAN) specimens. It is used under Emergency Use Authorization (EUA) by FDA. The limit of detection (LOD) of the assay is 125 Genome Equivalents/mL. A positive result is indicative of the presence of SARS-CoV-2 RNA. Clinical correlation with patient history and other diagnostic information is necessary to determine patient infection status. A negative (Not Detected) result does not preclude SARS-CoV-2 infection. In patients with clinical symptoms and other tests that are consistent with SARS-CoV-2 infection, negative results should be treated as presumptive negative and a new specimen should be tested with alternative PCR molecular test. Invalid: Please collect a new specimen for repeat patient testing if clinically indicated. Performing Organization Address City/[facility]/Zipcode Phone Number [facility] CLIA: [id number], [address] [id number] [address] [facility] N-TERMINAL PRO-BNP (04/16/2020 8:39 PM CDT) Pathologist Sig nature NT-proBNP 1,370 (H) <=125 pg/mL [facility] Specimen Blood - VENOUS Narrative Performed At Biotin has been reported to cause a negative [facility] bias, interpret results relative to patient's use of biotin. Performing Organization Address City/State/Zipcode Phone Number [facility] CLIA: [id number], [address] [id number] [address] [facility] [address] PHOSPHORUS (04/16/2020 8:39 PM CDT) Pathologist Sig nature PHOSPHORUS 10.1 (H) 2.5 - 5.0 mg/dL [facility] Specimen Blood - VENOUS Performing Organization Address City/[facility]/Zipcode Phone Number [facility] CLIA: [id number], [address] MAGNESIUM (04/16/2020 8:39 PM CDT) Pathologist Sig nature MAGNESIUM 2.1 1.7 - 2.4 mg/dL [facility] Specimen Blood - VENOUS Performing Organization Address City/State/Zipcode Phone Number [facility] CLIA: [id number], [address] [place], [place] [address] COMP. METABOLIC PANEL (87734) (04/16/2020 8:39 PM CDT) NA 141 135 - 145 [facility] mmol/L [facility] K 4.2 3.5 - 5.0 [facility] mmol/L [facility] CL 97 (L) 98 - 108 mmol/L [facility] CO2 TOTAL 27 23 - 31 mmol/L [facility] AGAP 17 (H) 2 - 16 [facility] BUN 141 (H) 7 - 23 mg/dL [facility] GLUCOSE 121 (H) 70 - 110 mg/dL [facility] CREATININE 5.02 (H) 0.50 - 1.04 [facility] mg/dL [facility] TOTAL BILI 0.3 0.1 - 1.1 mg/dL [facility] CALCIUM 7.2 (L) 8.6 - 10.6 [facility] mg/dL [facility] T PROTEIN 8.6 (H) 6.3 - 8.2 g/dL [facility] ALBUMIN 4.0 3.5 - 5.0 g/dL [facility] ALK PHOS 93 34 - 122 U/L [facility] ALTv 16 5 - 35 U/L [facility] AST(SGOT) 22 13 - 40 U/L [facility] eGFR Calculation 8.6 mL/min/1.73m2 [facility] (Non[facility] LABORATORY [place]) eGFR Calculation 10.4 mL/min/1.73m2 [facility] () [facility] Specimen Blood - VENOUS Narrative Performed At Association of Glomerular Filtration Rate (GFR) [facility] and Staging of Kidney Disease* + + +- + | GFR (mL/min/1.73 m2) | With Kidney Damage | Without Kidney Damage + + +- + | >90 | Stage one | Normal + + +- + | 60-89 | Stage two | Decreased GFR + + +- + | 30-59 | Stage three | Stage three + + +- + | 15-29 | Stage four | Stage four + + +- + | <15 (or dialysis) | Stage five | Stage five + + +- + *Each stage assumes the associated GFR level has been in effect for at least three months. Stages 1 to 5, with or without kidney disease, indicate chronic kidney disease. Notes: Determination of stages one and two (with eGFR >59mL/min/1.73 m2) requires estimation of kidney damage for at least three months as defined by structural or functional abnormalities of the kidney, manifested by either: Pathological abnormalities or Markers of kidney damage (including abnormalities in the composition of the blood or urine or abnormalities in imaging tests). Performing Organization Address City/State/Zipcode Phone Number [facility] CLIA: [id number], [address] [place], [place] [address] CBC WITH DIFF (04/16/2020 8:39 PM CDT) Pathologist Sig nature WBC 10.33 4.30 - 11.10 [facility] 10*3/L [facility] RBC 2.80 (L) 3.93 - 5.25 [facility] 10*6/L [facility] HGB 8.0 (L) 11.6 - 15.0 [facility] g/dL [facility] HCT 26.0 (L) 35.7 - 45.2 % [facility] MCV 92.9 80.6 - 95.5 fL [facility] MCH 28.6 25.9 - 32.8 pg [facility] MCHC 30.8 (L) 31.6 - 35.1 [facility] g/dL [facility] RDW-SD 45.1 39.0 - 49.9 fL [facility] RDW-CV 13.3 12.0 - 15.5 % [facility] PLT 255 166 - 358 [facility] 10*3/L [facility] MPV 10.8 9.5 - 12.9 fL [facility] NRBC/100 WBC 0.0 0.0 - 10.0 /100 [facility] WBCs HOSPITAL LAB[facility]ORY NRBC x10^3 <0.01 10*3/L [facility] GRAN MAT (NEUT) % 66.7 % [facility] IMM GRAN % 0.50 % [facility] LYMPH % 20.6 % [facility] MONO % 6.4 % [facility] EOS % 5.2 % [facility] BASO % 0.6 % [facility] GRAN MAT x10^3(ANC) 6.89 1.88 - 7.09 [facility] 10*3/uL [facility]ITAL [facility] IMM GRAN x10^3 0.05 0.00 - 0.06 [facility] 10*3/uL [facility] LYMPH x10^3 2.13 1.32 - 3.29 [facility] 10*3/uL [facility] MONO x10^3 0.66 0.33 - 0.92 [facility] 10*3/uL [facility] EOS x10^3 0.54 (H) 0.03 - 0.39 [facility] 10*3/uL [facility] BASO x10^3 0.06 0.01 - 0.07 [facility] 10*3/uL [facility] Specimen Blood - VENOUS Performing Organization Address City/State/Zipcode Phone Number [facility] CLIA: [id number], [address] [place] [id number] ABDOMEN PELVIS WO CONTRAST (04/16/2020 8:25 PM CDT) Specimen Impressions Performed At PACS/VR/DOSE Limited evaluation without IV contrast. No acute fractures. Soft tissue swelling in the lower abdomen and proximal thigh. Distended urinary bladder. Prominent rig ht ureter with right-sided periureteral and perinephric stranding.. Ascending infection/pyelonephritis is possible. No obstructive negative lit hiasis or ureterolithiasis. No hydronephrosis.. Mildly enlarged retroperitoneal and pelv ic lymph nodes, nonspecific, possibly reactive. Tree-in-bud opacities in the right middl e and lower lobe, partially visualized. Findings suggest an infectio us etiology or aspiration. Cholelithiasis without cholecystitis. Mi ld hepatomegaly. Advanced endplate changes at L4-L5. Diff use osteopenia. Preliminary Report Dictated by Resident: Efrain Carrera I, Susanne Reilly MD., have reviewed this study and agree with the above report. Narrative Performed At CT ABDOMEN AND PELVIS WITH CONTRAST PACS/VR/DOSE HISTORY: Pelvis-low abd trauma, blunt, lower urinary t ract trauma suspected COMPARISON: Same day hip radiographs. TECHNIQUE: Contiguous axial imaging from the level of the lung bases through the pubic symphysis was performed without IV c ontrast. Coronal and sagittal reconstructions were obtained. FINDINGS: Limited evaluation of the intra-abdominal structures w ithout IV contrast. LOWER THORAX: Bibasilar subsegmental atelectasis. Tree -in-bud opacities in the right middle lobe and right lower lo be are partially visualized. Hypoattenuation of the blood pool relative to the myoc ardium is suggestive of anemia. LIVER: Mild hepatomegaly up to 18.4 cm in craniocaudal dimension. No focal hepatic lesions within the limitations o f a noncontrast CT. Scattered calcified granulomas are seen.. GALLBLADDER: Cholelithiasis. No gallblad jonas wall thickening. SPLEEN: No splenomegaly. PANCREAS: Unremarkable within the extent visualized ADRENAL GLANDS: No adrenal nodules. KIDNEYS: Bilateral renal cortical simple cysts measuring up to 3.5 cm in the left lower pole. Bilateral perinephr ic stranding, right greater than left, nonspecific. Scattered vascular ca lcifications. No obstructive nephrolithiasis or urolithiasis is seen. No hydronephrosis. Asymmetric prominence of the right mid ureter at th e level of the pelvic inlet on 2:106 with adjacent stranding, nonspecif ic. PERITONEUM AND RETROPERITONEUM: No free air or fluid. Right perinephric and periureteral stranding, nonspecific. LYMPH NODES: Mildly enlarged pelvic lymph nodes bilate rally up to 1.1 cm in the external iliac chain.. Enlarged retroperitoneal ly mph nodes measuring up to 1 cm a. GI TRACT: No dilation or wall thickening . Retrocecal appendix on 4:57, normal. Laxity of the pelvic floor muscu lature with a small rectocele. Distal rectosigmoid wall thickening, non specific. PELVIS: The urinary bladder is markedly distended. Sta tus post hysterectomy VESSELS: Scattered aortoiliac atheroscle rotic calcifications. BONES AND SOFT TISSUES: No acute osseous abnormalities . Diffuse osteopenia. Advanced endplate degenerative changes i n the lower lumbar spine with partial fusion of L4-L5.. Sarcopenia. Soft tissue swel ling in the proximal lateral hip and lower abdominal wall sof t tissues. Procedure Note [facility], Radiant Results Inft User - 2019 10:[address] ABDOMEN AND PELVIS WITH CONTRAST HISTORY: Pelvis-low abd trauma, blunt, l ower urinary tract trauma suspected COMPARISON: Same day hip radiographs. TECHNIQUE: Contiguous axial imaging from the level of the lung bases through the pubic symphysis was performe d without IV contrast. Coronal and sagittal reconstructions were obtained. FINDINGS: Limited evaluation of the intra-abdomina l structures without IV contrast. LOWER THORAX: Bibasilar subsegmental ate lectasis. Tree-in-bud opacities in the right middle lobe and right lower lo be are partially visualized. Hypoattenuation of the blood pool relati ve to the myocardium is suggestive of anemia. LIVER: Mild hepatomegaly up to 18.4 cm i n craniocaudal dimension. No focal hepatic lesions within the limitations o f a noncontrast CT. Scattered calcified granulomas are seen.. GALLBLADDER: Cholelithiasis. No gallblad jonas wall thickening. SPLEEN: No splenomegaly. PANCREAS: Unremarkable within the extent visualized ADRENAL GLANDS: No adrenal nodules. KIDNEYS: Bilateral renal cortical simple cysts measuring up to 3.5 cm in the left lower pole. Bilateral perinephr ic stranding, right greater than left, nonspecific. Scattered vascular ca lcifications. No obstructive nephrolithiasis or urolithiasis is seen. No hydronephrosis. Asymmetric prominence of the right mid ureter at th e level of the pelvic inlet on 2:106 with adjacent stranding, nonspecif ic. PERITONEUM AND RETROPERITONEUM: No free air or fluid. Right perinephric and periureteral stranding, nonspecific. LYMPH NODES: Mildly enlarged pelvic lymp h nodes bilaterally up to 1.1 cm in the external iliac chain.. Enlarged retr operitoneal lymph nodes measuring up to 1 cm a. GI TRACT: No dilation or wall thickening . Retrocecal appendix on 4:57, normal. Laxity of the pelvic floor muscu lature with a small rectocele. Distal rectosigmoid wall thickening, non specific. PELVIS: The urinary bladder is markedly distended. Status post hysterectomy VESSELS: Scattered aortoiliac atheroscle rotic calcifications. BONES AND SOFT TISSUES: No acute osseous abnormalities. Diffuse osteopenia. Advanced endplate degenerative changes i n the lower lumbar spine with partial fusion of L4-L5.. Sarcopenia. So ft tissue swelling in the proximal lateral hip and lower abdominal wall sof t tissues. IMPRESSION Limited evaluation without IV contrast. No acute fractures. Soft tissue swelling in the lower abdomen and proximal thigh. Distended urinary bladder. Prominent rig ht ureter with right-sided periureteral and perinephric stranding.. Ascending infection/pyelonephritis is possible. No obstructive negative lit hiasis or ureterolithiasis. No hydronephrosis.. Mildly enlarged retroperitoneal and pelv ic lymph nodes, nonspecific, possibly reactive. Tree-in-bud opacities in the right middl e and lower lobe, partially visualized. Findings suggest an infectio us etiology or aspiration. Cholelithiasis without cholecystitis. Mi ld hepatomegaly. Advanced endplate changes at L4-L5. Diff use osteopenia. Preliminary Report Dictated by Resident: Susanne Pina MD., have reviewed this study and agree with the above report. Performing Organization Address City/State/Zipcode Phone Number PACS/VR/DOSE XR HIPS 3 VW BILATERAL (04/16/2020 6:09 PM CDT) Specimen Impressions Performed At PACS/VR/DOSE No acute bony abnormality. Preliminary Report Dictated by Resident: To Fields MD., have reviewed this study and a gree with the above report. Narrative Performed At EXAM: XR HIPS 3 VW BILATERAL PACS/VR/DOSE HISTORY: 65 years-old Female with multip le falls. R/o fracture COMPARISON: Right hip x-ray 03/18/2015 FINDINGS: Radiographs of the bilateral hips demons trate no acute fractures or dislocations. Joint spaces are preserved . Alignment is within normal limits. Vascular calcifications are noted. Pelvic phle boliths are noted. Procedure Note [facility], Radiant Results Inft User - 2019 7:13 PM CDT EXAM: XR HIPS 3 VW BILATERAL HISTORY: 65 years-old Female with multip le falls. R/o fracture COMPARISON: Right hip x-ray 03/18/2015 FINDINGS: Radiographs of the bilateral hips demons trate no acute fractures or dislocations. Joint spaces are preserved . Alignment is within normal limits. Vascular calcifications are note d. Pelvic phleboliths are noted. IMPRESSION No acute bony abnormality. Preliminary Report Dictated by Resident: To Fields MD., have reviewed [facility] study and agree with the above report. Performing Organization Address City/State/Zipcode Phone Number PACS/VR/DOSE documented in this encounter Visit Diagnoses Diagnosis Fall, initial encounter - Primary Uremia Renal failure, unspecified Chronic diastolic congestive heart failu re Chronic diastolic heart failure Morbid obesity with body mass index of 5 0 or higher Coronary artery disease involving [place] coronary artery of [place] heart without angina pectoris Weakness Other malaise and fatigue Anemia of chronic renal failure, unspeci fied CKD stage Localized edema due to fluid overload documented in this encounter Administered Medications Medication Order MAR Action Action Date Dose Rate Site acetaminophen (TYLENOL) tablet 650 mg 650 mg, Oral, Q6HPRN, Starting Sat at 0015, Until Discontinued, Routine, Pain (scale 1-3) allopurinoL (ZYLOPRIM) tablet 100 mg Given 04/20/2020 8:23 AM CDT 100 mg 100 mg, Oral, DAILY, First dose on 04/17/20 at 0900, Until Discontinued, Routine Given 04/19/2020 8:15 AM CDT 100 mg Given 04/18/2020 7:53 AM CDT 100 mg amLODIPine (NORVASC) tablet 10 mg Given 04/21/2020 9:02 AM CDT 10 mg 10 mg, Oral, DAILY, First dose on 04/17/20 at 0900, Until Discontinued, Routine Given 04/20/2020 8:22 AM CDT 10 mg Given 04/19/2020 8:15 AM CDT 10 mg budesonide-formoteroL (SYMBICORT) 160-4.5 Given 04/21/2020 7:12 AM CDT 2 Puffs mcg/actuation inhaler 2 Puff 2 Puff, Inhalation, BID, First dose on 04/17/20 at 0800, Until Discontinued, Routine Given 04/20/2020 8:36 PM CDT 2 Puffs Given 04/20/2020 8:21 AM CDT 2 Puffs bumetanide (BUMEX) tablet 2 mg Given 04/21/2020 4:40 PM CDT 2 mg 2 mg, Oral, QAM+PM, First dose on 04/18/20 at 1700, Until Discontinued, Routine Given 04/21/2020 9:02 AM CDT 2 mg Given 04/20/2020 4:33 PM CDT 2 mg calcium carbonate (OSCAL-500) tablet 500 mg Given 04/21/2020 4:40 PM CDT 500 mg 500 mg, Oral, TID MEALS, First dose on 04/17/20 at 0800, Until Discontinued, Routine Given 04/20/2020 4:33 PM CDT 500 mg Given 04/20/2020 12:12 PM CDT 500 mg dextrose 50 % in water (D50W) injection 25 mL 25 mL, Slow IV Push, PRN, Starting Sat at 0016, Until Discontinued, DERICK, Blood Glucose < or = 70 mg/dL and patien t is unable to swallow or has mental status changes. glucagon (GLUCAGEN DIAGNOSTIC KIT) injec tion 1 mg 1 mg, Intramuscular, PRN, Starting Sat at 0016, Until Discontinued, DERICK, Blood Glucose < or = 70 mg/dL and patient is unable to swallow or has mental changes. insulin glargine (LANTUS Given 04/20/2020 8:23 AM CDT 30 Units Left Upper Arm-SC U-100) injection 30 Units 30 Units, Subcutaneous, DAILY, First dose on 04/18/20 at 0900, Until Discontinued, Routine Given 04/19/2020 8:08 AM CDT 30 Units Abdo men-SC Given 04/18/2020 7:53 AM CDT 30 Units Abdo men-SC levothyroxine (SYNTHROID) tablet 100 mcg Given 04/20/2020 5:50 AM CDT 100 mcg 100 mcg, Oral, QAM-0600, First dose on 04/17/20 at 0600, Until Discontinued, Routine Given 04/19/2020 5:54 AM CDT 100 mcg Given 04/18/2020 5:32 AM CDT 100 mcg metoprolol succinate XL (TOPROL XL) tablet 50 Given 9:02 AM CDT 50 mg mg 50 mg, Oral, DAILY, First dose on 04/17/20 at 0900, Until Discontinued, Routine Given 04/20/2020 8:23 AM CDT 50 mg Given 04/19/2020 8:15 AM CDT 50 mg ondansetron (ZOFRAN (PF)) injection 4 mg 4 mg, Slow IV Push, Q6HPRN, Starting 04/17/20 at 00 15, Until Discontinued, Routine, Nausea and Vomiting (N/V) sevelamer (RENVELA) tablet 1,600 mg Given 04/21/2020 4:39 PM CDT 1,600 mg 1,600 mg, Oral, TID MEALS, First dose on 04/17/20 at 1700, Until Discontinued, Routine Given 04/20/2020 4:33 PM CDT 1,600 mg Given 04/20/2020 12:12 PM CDT 1,600 mg Sliding Scale Insulin - Aspart Given 04/21/2020 4:41 PM CDT 4 U nits Abdomen-SC (NOVOLOG) + Fsbg Testing Subcutaneous, AC+HS, First dose on 04/17/20 at 0730, Until Discontinued, Routine Given 04/20/2020 8:41 PM CDT 2 Units Left Upper Arm-SC Given 04/20/2020 5:39 PM CDT 4 Units Abdo men-SC sodium ferric gluconate (FERRLECIT) 125 mg New Bag 04/21 9:02 AM CDT 125 mg in NaCl 0.9% (NS) 100 mL IV piggyback 125 mg, IV Piggyback, DAILY, 8 doses, First dose on Sun04/19/20 at 0900, Last dose on Sun04/26/20 at 0900, 100 mL, production team member approving Restricted medication: RYAN GODINEZ New Bag 04/20/2020 9:38 AM CDT 125 mg New Bag 04/19/2020 8:15 AM CDT 125 mg Medication Order MAR Action Action Date Dose Rate Site aspirin EC tablet 81 mg Given 04/18/2020 7:53 AM CDT 81 mg 81 mg, Oral, DAILY, First dose on 04/17/20 at 0900, Until Discontinued, Routine Given 04/17/2020 8:06 AM CDT 81 mg epoetin morteza-epbx (RETACRIT) Given 04/17/2020 8:02 PM CDT 10,00 0 Units Abdomen-SC injection 10,000 Units 10,000 Units, Subcutaneous, ONCE AT 2000, 1 dose, 04/17/20 at 2000, Routine, production team member approving Restricted medication: RYAN GODINEZ FENTanyl PF (SUBLIMAZE (PF)) injection 25 Given 04/16/2020 5:46 PM CDT 25 mcg mcg 25 mcg, Slow IV Push, ONCE, 1 dose, Sun04/16/20 at 1845, STAT FENTanyl PF (SUBLIMAZE (PF)) injection 25 Given 04/16/2020 9:30 PM CDT 25 mcg mcg 25 mcg, Slow IV Push, ONCE, 1 dose, Sun04/16/20 at 2230, STAT furosemide (LASIX) 200 mg in NaCl New Bag 04/17/2020 9:39 AM CDT 10 mg/hr 5 mL/hr 0.9% (NS) 100 mL infusion 10 mg/hr (5 mL/hr), IV Infusion, CONTINUOUS, Starting 04/17/20 at 0930 furosemide (LASIX) injection 40 mg Given 04/16/2020 10:08 PM CDT 40 mg 40 mg, IV Push, ONCE, 1 dose, Sun04/16/20 at 2300, DERICK furosemide (LASIX) injection 80 mg Given 04/20/2020 3:44 PM CDT 80 mg 80 mg, Slow IV Push, ONCE, 1 dose, Sun04/20/20 at 1615, Routine furosemide (LASIX) injection 80 mg Given 04/21/2020 4:39 PM CDT 80 mg 80 mg, Slow IV Push, ONCE, 1 dose, Sun04/21/20 at 1145, Routine heparin (porcine) injection Given 04/18/2020 8:08 PM CDT 5,000 Units Abdomen-SC 5,000 Units 5,000 Units, Subcutaneous, Q12H, First dose on 04/17/20 at 0800, Until Discontinued, Routine Given 04/18/2020 7:52 AM CDT 5,000 Units Abdo men-SC Given 04/17/2020 8:02 PM CDT 5,000 Units Abdo men-SC HYDROcodone-acetaminophen (NORCO 5) 5-325 Given 2019 5:46 PM CDT 1 tablet mg tablet 1 tablet 1 tablet, Oral, ONCE, 1 dose, Sun04/16/20 at 1845, DERICK metOLazone (ZAROXOLYN) tablet 5 mg Given 04/17/2020 8:06 AM CDT 5 mg 5 mg, Oral, DAILY, First dose on 04/17/20 at 0900, Until Discontinued, Routine traMADol (ULTRAM) tablet 50 mg Given 04/17/2020 8:02 PM CDT 50 mg 50 mg, Oral, Q8HPRN, Starting 04/17/20 at 0015, Until 04/19/20 at 0014, Routine, Pain (scale 4-6) Given 04/17/2020 3:25 AM CDT 50 mg documented in this encounter Additional Health Concerns Infection Onset Date Last Indicated Resolved Time COVID-19 Rule Out 04/16/2020 04/16/2020 04/16/2020 10: 55 PM CDT COVID-19 Rule Out 04/21/2020 04/21/2020 documented as of this encounter Insurance Payer Benefit Plan / Subscriber ID Effective Dates Phone Addre ss Type Group PLDT [id number] 2018-Present Medicare [employer] documented as of this encounter
--- OUTSIDE RECORDS SUMMARY | 2020-07-01 22:15 | XMS REPORT ---
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 nephropathy Problem Swelling R60.9 Active Problem High blood pressure I10 Active Problem Circulation problem I99.9 Active Problem Right leg pain M79.604 Active Problem Weight gain R63.5 Active Problem Depression, unspecified depression F32.9 Active type Problem Shortness of breath R06.02 Active Problem Pain in left foot M79.672 Active Problem Chest tightness R07.89 Active Problem Hypoxia R09.02 Active Problem Blister T14.8XXA Active Problem Asthma, unspecified asthma J45.909 A ctive severity, unspecified whether complicated, unspecified whether persistent Problem Hyperlipidemia, unspecified E78.5 Active hyperlipidemia type Assessment History of recent fall Z91.81 Activ e Problem Rash and nonspecific skin eruption R21 Active Problem Hypothyroidism, unspecified type E03.9 Active Assessment At risk for falls Z91.81 Active Problem Non healing left heel wound S91.302A Active Problem Pain in right foot M79.671 Active Problem At risk for falls Z91.81 Active Problem On supplemental oxygen by nasal Z78.9 Active cannula Problem Diabetes E11.9 Active Problem Cellulitis of right lower L03.115 Ac tive extremity Problem Essential hypertension I10 Activ e Problem Uncontrolled type 2 diabetes E11.65 Active mellitus with hyperglycemia Problem Depression F32.9 Active Problem Chronic kidney disease, N18.9 Acti ve unspecified CKD stage Problem Asthma J45.909 Active Problem Status post non-ST elevation I25.2 Active myocardial infarction (NSTEMI) Problem Gastroesophageal reflux disease, K21.9 Active esophagitis presence not specified Problem CHF (congestive heart failure) I50.9 Active Problem Cellulitis of right leg L03.115 Acti ve Problem Skin abrasion T14.8XXA Active Problem History of recent fall Z91.81 Activ e Medications No Known Medications Results No Known Results Summary Purpose [employer] Submission
--- OUTSIDE RECORDS SUMMARY | 2020-07-01 22:15 | XMS REPORT ---
:1955 Author Organization [employer] Care Team Providers Name Role Phone Shanice Berger Provider Role Unavailable Allergies, Adverse Reactions, Alerts Substance Reaction Event Type penicillin rash Drug Allergy Problems Problem Type Condition Code Onset Dates [...] Active Problem Circulation problem I99.9 Active Problem Depression, unspecified depression F32.9 Active type Problem Asthma, unspecified asthma J45.909 A ctive severity, unspecified whether complicated, unspecified whether persistent Problem Hyperlipidemia, unspecified E78.5 Active hyperlipidemia type Problem Hypothyroidism, unspecified type E03.9 Active Problem Cellulitis of right lower L03.115 Ac tive extremity Problem Uncontrolled type 2 diabetes E11.65 Active mellitus with hyperglycemia Problem Chronic kidney disease, N18.9 Acti ve unspecified CKD stage Problem Status post non-ST elevation I25.2 Active myocardial infarction (NSTEMI) Problem Gastroesophageal reflux disease, K21.9 Active esophagitis presence not specified Problem Cellulitis of right leg L03.115 Acti ve Problem Skin abrasion T14.8XXA Active Problem History of recent fall Z91.81 Activ e Assessment Hyperlipidemia, unspecified E78.5 Active hyperlipidemia type Assessment Hypothyroidism, unspecified type E03.9 Active Assessment Depression, unspecified depression F32.9 Active type Assessment Asthma, unspecified asthma J45.909 A ctive severity, unspecified whether complicated, unspecified whether persistent Assessment At risk for falls Z91.81 Active Assessment Type 2 diabetes mellitus with E11.21 Active diabetic nephropathy Assessment Status post non-ST elevation I25.2 Active myocardial infarction (NSTEMI) Assessment Peripheral edema R60.9 Active Assessment On supplemental oxygen by nasal Z78.9 Active cannula Problem Right leg pain M79.604 Active Assessment Chronic kidney disease, N18.9 Acti ve unspecified CKD stage Problem Weight gain R63.5 Active Problem Shortness of breath R06.02 Active Problem Pain in left foot M79.672 Active Problem Chest tightness R07.89 Active Problem Hypoxia R09.02 Active Problem Blister T14.8XXA Active Problem Rash and nonspecific skin eruption R21 Active Assessment Essential hypertension I10 Activ e Problem Non healing left heel wound S91.302A Active Assessment Blister T14.8XXA Active Problem Pain in right foot M79.671 Active Assessment Rash and nonspecific skin eruption R21 Active Problem At risk for falls Z91.81 Active Assessment CHF (congestive heart failure) I50.9 Active Problem On supplemental oxygen by nasal Z78.9 Active cannula Assessment Hypoxia R09.02 Active Problem Diabetes E11.9 Active Problem Essential hypertension I10 Activ e Problem Depression F32.9 Active Problem Asthma J45.909 Active Problem CHF (congestive heart failure) I50.9 Active Medications Medication Code Code Instructions Start End Status Dosage System Date Date Omeprazole ND 21326280505 20 MG Orally Jessy Active 1 ca psule Once a day 2018 Acetaminophen ER ND 16720505568 650 MG Orally Activ e 2 tablets as every 8 hrs needed Colace ND 87749456166 100 MG Orally Active 1 caps ule as Twice a day needed Aspir-Low ND 28458164958 81 MG Orally Active 1 tab let [place] 0 [address] UNIT Active as di rected Orally Montelukast ND 64943272959 10 MG Orally Active 1 t ablet Sodium Once a day Toujeo SoloStar NDC 0 subcutaneously Active as directed 65 U once daily Duloxetine HCl ND 08875852701 30 MG Orally Active 1 capsule Once a day Cephalexin ND 17302536380 250 MG Orally Active 1 c apsule Three times day for 5 days Melatonin ND 36644158270 3 MG Orally Once Active 1 tablet at a day bedtime as needed with food Metoprolol ND 26258828799 25 MG Active TAKE 2 Succinate ER TABLETS BY MOUTH ONCE DAILY Ketoconazole ND 20470185429 2 % Externally Sept Oct Active 1 Once a day 07, 07, application 2019 2019 to affected area(s) Gabapentin ND 63600458303 300 MG Orally Active 1 c apsule three times a day for pain Lantus [facility] 72621425812 100 UNIT/ML Active 65 units Subcutaneous Once daily Atorvastatin [facility] [place] 18222263720 40 MG Orally Active 1 tablet in Calcium Once a day evening Insulin Regular [facility] [place] [address]-82 100 UNIT/ML Active (HUMILIN Human Subcutaneous R--OTC) as 10-20 units directed three times daily with meals Multivitamin [facility] [place] [address] - Orally Once Active 1 tablet Adult daily Calcium Carbonate [facility] [place] 84192137491 500 MG Orally Acti ve 1 tablet Once a day Amlodipine [facility] [place] 67123938170 10 MG Orally Active 1 ta blet Besylate Once a day Metoprolol [facility] [place] 59693281518 25 MG Orally Active 2 ca psules Succinate Once a day Torsemide [facility] [place] 75367960307 20 MG Orally 1 Active as directed tablet twice daily NovoLog Flexpen [facility] [place] [address]-66 Subcutaneous as A ctive as directed directed Toujeo SoloStar [facility] [place] 79050021485 300u/ml Active as d irected subcutaneously 65 units once daily Levothyroxine [facility] [place] 56327490422 100 MCG Orally Active 1 tablet on Sodium Once a day an empty stomach in the morning Results Name Result Date Reference Range Unit Abnormali ty Flag HEMOGLOBIN A1C ----A1C 7.6% 20200527 Summary Purpose eClinicalWorks Submission
--- OUTSIDE RECORDS SUMMARY | 2020-07-01 22:15 | XMS REPORT ---
[...] Hyperlipidemia, unspecified E78.5 Active hyperlipidemia type Problem Rash and nonspecific skin eruption R21 Active Problem Hypothyroidism, unspecified type E03.9 Active Problem Non healing left heel wound [...] of recent fall Z91.81 Activ e Medications Medication Code Code Instructions Start End Status Dosage System Date Date Metoprolol [facility] 32372085979 25 MG Orally Active TAKE 2 Succinate ER Once a day TABLETS BY MOUTH ONCE DAILY Results No Known Results Summary Purpose eClinicalWorks Submission
--- OUTSIDE RECORDS SUMMARY | 2020-07-01 22:15 | XMS REPORT | Summary of Care ---
:1955 Author Organization [facility] Address [address] [place] [address] Care Team Providers Name Role Phone Jorge Luis Hendrix MD Insurance [employer] Catherine Berger Primary Care Provider Reason for Visit Reason Comments Transition Of Care Encounter Details Date Type Department Care Team Description 04/22/2020 Transition [facility] Care [facility] [address] [address] Allergies Active Allergy Reactions Severity Noted Date Comments Penicillin Rash 07/05/2015 documented as of this encounter (statuses as of 04/22/2020) Medications Medication Sig Dispensed Refills Start Date End Date Status levothyroxine (SYNTHROID) Take 100 mcg 0 Active 100 mcg tablet by mouth every morning. montelukast (SINGULAIR) 10 Take 10 mg by 0 Active mg tablet mouth daily. metoprolol succinate XL Take 50 mg by 0 Active (TOPROL XL) 25 mg 24 hr mouth daily. tablet albuterol (VENTOLIN) 90 Inhale 2 Puffs 0 Active mcg/actuation inhaler every 6 (six) hours as needed for Wheezing or Shortness of Breath. atorvastatin 40 mg Take 1 tablet 30 tablet 12 11/08/2018 Active tabletIndications: by mouth at Hypercholesterolemia bedtime. vitamin b complex-vitamin Take 1 tablet 30 tablet 3 01/01/2019 Active c-folic acid 0.8 mg by mouth tabletIndications: Acute daily. kidney injury, Cellulitis of right lower extremity ca acetate-alum sulfate Apply 1 Packet 24 Packet 3 12/31/2018 Active topical packetIndications: to area(s) 3 Acute kidney injury, (three) times Cellulitis of right lower daily. extremity insulin regular human 100 inject 10 6 mL 5 12/31/2018 Active unit/mL Units under injectionIndications: the skin 2 Acute kidney injury, (two) times Cellulitis of right lower daily before extremity breakfast and dinner. amLODIPine 10 mg Take 1 tablet 30 tablet 3 01/01/2019 Active tabletIndications: Acute by mouth kidney injury, Cellulitis daily. of right lower extremity calcium carbonate 500 mg Take 1 tablet 30 tablet 3 12/31/2018 Active calcium (1,250 mg) by mouth 3 tabletIndications: Acute (three) times kidney injury, Cellulitis daily with of right lower extremity meals. DULoxetine 30 mg CDRS Take 30 0 Active capsules by mouth daily. budesonide-formoteroL Inhale 2 Puffs 0 Active (SYMBICORT) 160-4.5 2 (two) times mcg/actuation inhaler daily. bumetanide 1 mg tablet Take 2 mg by 0 Active mouth every morning and evening. allopurinoL 100 mg tablet Take 100 mg by 0 Active mouth daily. insulin glargine 100 inject 30 10 mL 0 04/22/2020 05/22/20 2 Active unit/mL Units under 0 injectionIndications: the skin daily Fall, initial encounter for 30 days. sevelamer 800 mg Take 2 tablets 180 tablet 0 04/21/2020 Active tabletIndications: Fall, by mouth 3 0 initial encounter (three) times daily with meals for 30 days. ferrous sulfate 324 mg (65 Take 1 tablet 30 tablet 0 0 Active mg iron) EC by mouth daily 0 tabletIndications: Fall, with breakfast initial encounter for 30 days. documented as of this encounter (statuses as of 04/22/2020) Active Problems Problem Noted Date Weakness 04/16/2020 Volume overload 10/30/2019 Chronic diastolic congestive heart failure 12/23/2018 ALANIZ (dyspnea on exertion) 12/21/2018 Essential hypertension 12/21/2018 Elevated troponin I level 12/21/2018 Coronary artery disease involving [place] coronary valent[place] ry of [employer] [place] heart 12/21/2018 without angina pectoris History of DE (myocardial infarction) 12/21/2018 Cellulitis 12/21/2018 WOODY (acute kidney injury) 12/20/2018 Morbid obesity with body mass index of 40.0-49.9 08/16 Morbid obesity with body mass index of 50 or higher documented as of this encounter (statuses as of 04/22/2020) Social History Tobacco Use Types Packs/Day Years Used Date Former Smoker Quit: 09/24/19 01 Smokeless Tobacco: Never Used Alcohol Use Drinks/Week oz/Week Comments No Education Answer Date Recorded What is the highest level of school Associate degree: [employer] 10/30/2019 you have completed or the [...] of this encounter Last Filed Vital Signs Not on filedocumented in this encounter Plan of Treatment Health Maintenance Due Date Last Done Comments [...] of this encounter Implants Implanted Type Area Geophysicist Device Identifier Shelf Exp iration Model / Serial Date / Lot Stent STENT Description:3 coronary artery stents documented as of this encounter Results Not on filedocumented in this encounter Additional Health Concerns Infection Onset Date Last Indicated Resolved Time COVID-19 Rule Out 04/21/2020 04/21/2020 documented as of this encounter Insurance Payer Benefit Plan / Subscriber ID Effective Dates Phone Addre ss Type Group [employer] [id number] 2018-Present Medicare Adv [place] HMO documented as of this encounter
== END 2020-06-30 18:51 | disposition home or self-care (01) ==
LOC: ER 17:00
DX: S80.02XA Contusion of left knee, initial encounter (principal); S00.83XA Contusion of other part of head, initial encounter; W18.09XA Striking against other object with subsequent fall, initial encounter; Y93.01 Activity, walking, marching and hiking; Y92.531 Health care provider office as the place of occurrence of the external cause; E11.9 Type 2 diabetes mellitus without complications; Z99.2 Dependence on renal dialysis; Z88.0 Allergy status to penicillin; Z95.818 Presence of other cardiac implants and grafts
CPT/HCPCS: 36415; 70450; 70486; 71250; 72125; 76377; 80048; 85025; 85610; 85730; 93005; 99284

== ENCOUNTER 2021-01-20 06:33 | Day surgery (SDC) | payer OTHER ==
[2021-01-20] MEDS ORDERED: NA CHLORIDE 0.9% 1,000 ML ONE (07:07)
[2021-01-20] MEDS: CYCLOPENTOLATE 2% OPTH 2 ML ONE ×2 (07:10→07:22)
[2021-01-20] MEDS: MOXIFLOXACIN HCL 0.5% 3ML OPTH OPTH ONE ×2 (07:10→07:22)
[2021-01-20] MEDS: KETOROLAC OPTHALMIC 5 ML BOT ONE ×2 (07:10→07:22)
[2021-01-20] MEDS: TROPICAMIDE 1% OPTH 3 ML BOT ONE ×2 (07:10→07:22)
[2021-01-20] MEDS: PHENYLEPHRINE 2.5% OPTH 2 ML ONE ×2 (07:10→07:22)
[2021-01-20] MEDS ORDERED: BSS OPTHALMIC SOL 15 ML BOT OPTH ONE (07:26)
[2021-01-20] MEDS ORDERED: EPINEPHRINE/PF 1 MG/ML AMP ONE (07:26)
[2021-01-20] MEDS ORDERED: DUOVISC 1 KIT OPTH ONE (07:27)
[2021-01-20] MEDS ORDERED: BALANCED SALT IRRIG PLAIN 500 ML BTL IRR ONE (07:27)
[2021-01-20] MEDS ORDERED: POVIDONE-IODINE 5% EYE DROPS ONE (07:27)
[2021-01-20] MEDS ORDERED: propofoL 200 MG/20 ML VIAL IV ONE (07:47)
[2021-01-20] MEDS ORDERED: MIDAZOLAM HCL 2 MG/2 ML INJ ONE (07:48)
[2021-01-20] MEDS ORDERED: LIDOCAINE 2% MPF 5 ML VIAL ONE (07:48)
[2021-01-20] MEDS ORDERED: FENTANYL CITR 100 MCG/2 ML ONE (07:48)
[2021-01-20] MEDS ORDERED: ONDANSETRON 4 MG/2 ML VIAL ONE (07:54)
[2021-01-20] MEDS ORDERED: TRYPAN BLUE 0.5 ML SYR OPTH ONE (07:59)
[2021-01-20] MEDS ORDERED: EPHEDRINE SULF 50 MG/ML VIAL ONE (08:02)
[2021-01-20] MEDS ORDERED: GLYCOPYRROLATE 0.2 MG/ML SYR ONE (08:02)
[2021-01-20] MEDS: TOBRADEX 0.3-0.1% OPTH OINTMENT ONE ×2 (08:04→08:17)
[2021-01-20] MEDS ORDERED: Phenylephrine HCl 10 MG/ML 1 ML VIAL ONE (08:08)
[2021-01-20 09:39] VITALS: BP 124/30; TEMP 97.1; O2SAT 98
--- NOTE | 2021-01-20 18:57 | OP ---
Date of Procedure: 01/20/2021 Surgeon: Shiv Santizo MD Aerial Photograph Interpreter: None. The patient is to follow up with myself Dr. Shiv Santizo at [facility] tomorrow morning. Preoperative Diagnosis: Visually significant cataract, right eye. Postoperative Diagnosis: Visually significant cataract, right eye. Procedure Performed: Cataract extraction right eye with placement of intraocular lens, right eye. Procedure In Detail: After being properly identified in the preoperative holding area, the patient was taken back to the operating room where a time-out was performed. The patient was then prepped and draped in the normal sterile fashion. Examination of the eye underneath the operating microscope revealed red reflex was anticipated, and therefore the preoperative plan of using Trypan blue was not necessary. Grasping the globe with a pair of 0.12 forceps, paracentesis wounds were made at the 12 o'clock and 6 o'clock position and then the anterior chamber instilled with Viscoat. Again grasping the globe, the main phaco incision wound was made temporally using a 2.75 mm keratome and a triplanar fashion. A continuous curvilinear capsulotomy was thereafter created with a cystotome and completed with Utrata forceps. Hydrodissection and hydrodelineation were carried out using a Patino cannula resulting in free rotation of the lens nucleus. Thereafter, the cataract was dissected and removed in a standard divide and conquer technique and the total CDE was less than 8 seconds. Once all 4 quadrants had been removed, the phaco handpiece was exchanged for bimanual irrigation and aspiration handpieces and the cortical material was removed. On removal of the phaco handpiece, it was noted that there was an anterior capsular tear at the 1 o'clock position, but this did not extend to the posterior capsule. The cortical removal was carried out again using the bimanual hand pieces using careful technique, and I was even able to pulse the underside of the anterior capsule in most places. Once all cortical material had been removed, the capsular bag was inflated with DuoVisc and an Santi model [id number], power 15.5 diopters, serial #[id number] was implanted into the capsular bag. The haptics were rotated so as to minimize any tension and pressure put near the area of the anterior capsule split and the bimanual aspiration handpieces were switched for a coaxial I and A. All viscoelastic was thereafter removed. A single interrupted 10-0 nylon suture was placed through the main phaco incision wound temporally in order to help ensure water tightness and equalize the pressure. The globe was thereafter filled with intraocular BSS and pressurized as appropriate, and once all wounds were confirmed to be watertight with a Weck-Litzy, the procedure concluded. The patient having tolerated the procedure well under general anesthesia and no complications other than the anterior capsule split as noted above. Again, the single piece IOL was placed in the capsular bag without complication. There were no specimens sent or drains placed. Dictated but not reviewed Estimated Blood Loss: 0. JPG/MODL Voice ID: [id number] Report ID: [id number] MTDD
== END 2021-01-20 09:35 | disposition home or self-care (01) ==
LOC: OR 06:33
PROVIDERS: ATTEND Ophthalmology
PROC: 08RJ3JZ Replacement of Right Lens with Synthetic Substitute, Percutaneous Approach (ICD-10-PCS; principal; 2021-01-20 07:30)
DX: H26.9 Unspecified cataract (principal); Z20.822 Contact with and (suspected) exposure to COVID-19
CPT/HCPCS: 66984; 82947; U0003; J2704; J0171; J2370; J2250; J3010; J7030; J2405